=== PATIENT | female | born 1935 | race Caucasian/White ===

== ENCOUNTER 2018-03-27 18:37 | Inpatient (IN) ==
--- NOTE | 2018-03-28 02:15 | Internal Med History&Physical ---
<Veronica Yeboah - Last Filed: 03/28/18 06:34> Date of Encounter: 03/28/18 Time of Encounter: 02:00 Internal Medicine - H&P: HPI Chief complaint: falls Admitted From: Home Plans for Post Hospital Care: Home History of present illness: Ms. Douglas is a 82 year old female with a past medical history of COPD on 2 L , paroxysmal A. fib on digoxin and Xarelto with a pacemaker (MRI incompatible), hypertension, and newly diagnosed diabetes type 2 (yesterday) who is a transfer from [facility] for right lower lobe mass. Who presented to the ED for generalized weakness, frequent falls and abdominal pain that began on 03/23/18. Recent states that she had diffuse abdominal pain that did not worsen with eating and associated nausea. She admits to associated fever, increase congestion and urinary incontinence for the past week. Increased generalized weakness and pain in her lower extremities. Patient states that she has not had a bowel movement in 7 days. Patient was admitted to [address] [place] [address] and was found to have community acquired pneumonia and bacteremia with Klebsiella oxalate (treated with meropenem and ciprofloxacin starting on 03/26), elevated liver enzymes, and a right lower lobe mass. Upon admission to [facility], patient had a fever of 101.2, CRP 9.4, normal lactic acid, total bilirubin 2.3, AST 180, ALT 202, and an INR 2.9. UA was negative. CT of chest showed right lower lobe cavitary mass. Right ankle x- ray showed no acute fracture. 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 Ultrasound of gallbladder revealed cholelithiasis without evidence of acute cholecystitis, multiple hepatic cysts, echogenic lesion of the inferior pole of the right kidney consistent with angiomyolipoma Blood cultures showed Klebsiella oxytoca. A1c of 7.5 % and was diagonosed with diabetes. She continued to spike fevers and due to the concern for need for further evaluation for the cavitary mass, patient was transferred to [facility]. Culinary Instructor: Dr. Burton. Data Warehouse Manager: Dr. Best. ROS: Denies worsening shortness of breath, hemoptysis, syncope, melena, hematochezia, hematuria. Past Med Surg Social Fam HX - Past Medical History Source: patient, old records reviewed Medical history: COPD, diabetes, GERD, hyperlipidemia, hypertension Additional medical history: SOB, CASTANEDA, hernia Psychiatric history: anxiety - Past Surgical History Surgical History: appendectomy, hysterectomy Additional surgical history: BASAL CELL CARCINOMA REMOVED FROM NECK, CARPal tunnel release left wrist, loop recorder, PPM, eye surgery - Social History Smoking Status: Former smoker Smokeless Tobacco Status: No Alcohol use: none Drug use: none - Family History Mother Living Status: Hx Family Cardiac Disorders: Yes Father Living Status: Hx Family Cardiac Disorders: Yes (Aneurysm) Hx Family Neurologic Disorders: Yes Daughter Living Status: Still Living Hx Family Cardiac Disorders: Yes Internal Medicine - H&P: Meds Acetaminophen [Tylenol] 650 mg PO Q6HR PRN 07/04/15 [History] Albuterol Sulfate [Proventil Hfa] 2 puff Q4H PRN 07/04/15 [History] Docusate Sodium [Stool Softener] 100 mg PO DAILY 07/04/15 [History] Furosemide [Lasix] 40 mg PO DAILY 07/04/15 [History] Loratadine [Claritin] 10 mg PO DAILY 07/04/15 [History] Losartan [Cozaar] 50 mg PO DAILY 07/04/15 [History] Multivitamin [Flintstones] 1 each PO DAILY 07/04/15 [History] Nitroglycerin 0.4 mg SL Q5MIN PRN 07/04/15 [History] Omeprazole [PriLOSEC] 40 mg PO DAILY 07/04/15 [History] Potassium Chloride 20 meq PO TID 07/04/15 [History] Simvastatin [Zocor] 40 mg PO HS 07/04/15 [History] Tiotropium [Spiriva] 1 puff DAILY 07/04/15 [History] Fluticasone/Vilanterol [Breo Ellipta 100-25 Mcg INH] 1 each IH HS 01/01/16 [ History] Carvedilol [Coreg] 3.125 mg PO BIDWM #30 tablet 01/02/16 [Rx] Rivaroxaban [Xarelto] 20 mg PO HS 03/27/18 [History] 3 Allergy/AdvReac Type Severity Reaction Status Date / Time codeine Allergy Anxiety Verified 07/04/15 08:05 Penicillins [PCN] Allergy Itching Verified 07/04/15 08:04 All Systems PM: A 10-system review of systems was performed and is negative for pertinent findings except as documented above in the HPI. - Constitutional Vitals: Temp Pulse Resp BP Pulse Ox 100.5 F H 85 14 113/63 93 03/27/18 23:14 03/27/18 23:14 03/27/18 23:14 03/27/18 23:14 03/27/18 23:14 Exam: Constitutional: Alert, in no acute distress. A&O x3 Head: Normocephalic, atraumatic Heart: Normal, regular rate and rhythm, no murmurs Lungs: Clear to auscultation, no wheezes, rales, or rhonchi Abdomen: Soft, nondistended, nontender, no guarding or rigidity. Extremities: unable to do heel to hogue of right lower extremity to due to pain, parasthesia of lower extremities bilaterally all the way up to her thighs, + 2 pitting LE edema, radial pulse +2/4, capillary refill <2sec. Skin: Skin warm and dry, no lesions, no rashes, no jaundice Neurologic: Cranial nerves II through XII grossly intact, strength 4/5 in lower extremities, 5/5 in upper extremities Psych: Cooperative with exam, good eye contact, cognitive function intact, speech clear, thought process logical, and goal directed Internal Med - H&P Results - Labs CBC & Chem 7: 03/28/18 04:42 03/28/18 04:42 - Assessment and plan (1) Cavitating mass in right lower lung lobe Current Visit: Yes Status: Acute Assessment and plan: PMH of COPD chronically on 2L, former smoker. CT of chest shows a rounded opacity in the right infrahilar region corresponding to a centrally lucent mass in the medial right lower lobe, concerning for potential neoplasm. Left paratracheal mediastinal mass/adenopathy. Plan: - consult pulmonology for bronchoscopy with biopsy - Will need to consult oncology asfter pulmonology obtains biopsy - NPO for possible bronchoscopy tomorrow (2) Bacteremia due to Gram-negative bacteria Current Visit: Yes Status: Acute Assessment and plan: Bacteremia due to Klebsiella oxytoca, possibly GI source. No diarrhea. Sensitive to Meropenem and Ciprofloxacin and to all antibiotics tested except Ampicillin and Cefazolin. Patient continues to have fevers. Plan: - continue Meropenem and Ciprofloxacin (day 3) - CT chest, abd, and pelvis to access for possible abscess causing infection (3) CAP (community acquired pneumonia) Current Visit: Yes Status: Acute Assessment and plan: Increase nasal congestion, productive cough, fever, and generalized weakness. CXR shows opacification on the right. Already on antibiotics for bacteremia that should cover pneumonia. Qualifiers: Laterality: right Lung location: lower lobe of lung Qualified Code(s): J18.1 - Lobar pneumonia, unspecified organism (4) Urinary incontinence Current Visit: Yes Status: Acute Assessment and plan: Patient states that she has a history of stress incontinence but has had worsening incontinence for the past week that she has been unable to control. Concern for mets to the spinal cord or brain. Head CT showed no lesions, unable to do MRI due to pacemaker. Plan: - CT lumbar without contrast Qualifiers: Urinary Incontinence type: unspecified incontinence Qualified Code(s): R32 - Unspecified urinary incontinence (5) Constipation Current Visit: Yes Status: Acute Assessment and plan: Patient has been constipated for 7 days. Will begin with scheduled Miralax BID. Most likely 2/2 to opioids but could be 2/2 to mets to the spinal cord as patient is also having urinary incontinence and parasthesia. Patient has had chronic peripheral neuropathy so hard to distinguish if worsened but patient has had increase weakness and pain in her legs. Plan: - miralax 1 cap BID isaura - consult to neurology - measure I&Os Qualifiers: Constipation type: unspecified constipation type Qualified Code(s): K59.00 - Constipation, unspecified (6) Diabetes type 2, controlled Current Visit: Yes Status: Acute Assessment and plan: Newly diagnosed at [facility]. A1c= 7.5%. Most likely cause of her peripheral neuropathy. plan: - low sliding scale - accu checks TIDAC Qualifiers: Diabetes mellitus [facility] insulin use: without parts counterman use Diabetes mellitus complication status: with neurologic complications Diabetes mellitus complication detail: with polyneuropathy Qualified Code(s): E11.42 - Type 2 diabetes mellitus with diabetic polyneuropathy (7) Paroxysmal A-fib Current Visit: Yes Status: Chronic Assessment and plan: Chronic paroxysmal a-fib. No new concerns. Patient is rate controlled without chest pain. Continue Xarelto. Patient on Digoxin but unsure dose awaiting med reconciliation. (8) DVT prophylaxis Current Visit: Yes Status: Acute Assessment and plan: continue Xarelto (9) Nausea & vomiting Current Visit: Yes Status: Acute Assessment and plan: CT abdomen and pelvis. Zofran for symptoms relief. Qualifiers: Vomiting type: cyclical vomiting Vomiting Intractability: non-intractable Qualified Code(s): G43.A0 - Cyclical vomiting, not intractable - Time Spent With Patient Total time spent is greater than 50% in coordination of care (as documented) at patient's floor/unit and/or counseling patient: <Justin Galeas - Last Filed: 03/28/18 06:56> Date of Encounter: 03/28/18 Internal Medicine - H&P: HPI History of present illness: Ms. Douglas is a 82 year old female All Systems PM: A 10-system review of systems was performed and is negative for pertinent findings except as documented above in the HPI. - Constitutional Vitals: Temp Pulse Resp BP Pulse Ox 98.9 F 120 14 115/84 95 03/28/18 06:42 03/28/18 06:42 03/28/18 06:42 03/28/18 06:42 03/28/18 06:42 Internal Med - H&P Results - Labs CBC & Chem 7: 03/28/18 04:42 03/28/18 04:42 Labs: Short CBC 03/28/18 Range/Units 04:42 WBC 7.2 (4.3-11.1) K/mcL Hgb 10.3 L (11.5-15.4) g/dL Hct 33.1 L (35.3-44.9) % Plt Count 193 (140-400) K/mcL BMP 03/28/18 04:42 Sodium 141 Potassium 3.8 Chloride 102 Carbon Dioxide 30 H BUN 13 Creatinine 0.68 Glucose 173 H Calcium 8.8 Liver Function 03/28/18 Range/Units 04:42 Total Bilirubin 0.6 (0.3-1.0) mg/dL AST 29 (13-39) Units/L ALT 65 H (7-52) Units/L Alkaline Phosphatase 61 (34-104) Units/L Albumin 2.9 L (3.5-5.7) g/dL - Attending Attestation I have seen and examined this patient independently. I have discussed with resident physician Dr. Yeboah regarding the management plan. Agree with the documentation. Patient has A. fib on xarelto. Last dose was yesterday evening. Patient may need biopsy, will hold xarelto now. Patient complaint constipation, abdominal pain, and urinary incontinence. Will give lactulose by mouth, check CT abdominal and pelvis and L-spine. Patient has pacemaker, cannot have MRI. - Assessment and plan (1) Cavitating mass in right lower lung lobe Current Visit: Yes Status: Acute (2) CAP (community acquired pneumonia) Current Visit: Yes Status: Acute Qualifiers: Laterality: right Lung location: lower lobe of lung Qualified Code(s): J18.1 - Lobar pneumonia, unspecified organism (3) Bacteremia due to Gram-negative bacteria Current Visit: Yes Status: Acute (4) Constipation Current Visit: Yes Status: Acute Qualifiers: Constipation type: unspecified constipation type Qualified Code(s): K59.00 - Constipation, unspecified (5) Diabetes type 2, controlled Current Visit: Yes Status: Acute Qualifiers: Diabetes mellitus parts counterman insulin use: without parts counterman use Diabetes mellitus complication status: with neurologic complications Diabetes mellitus complication detail: with polyneuropathy Qualified Code(s): E11.42 - Type 2 diabetes mellitus with diabetic polyneuropathy (6) Paroxysmal A-fib Current Visit: Yes Status: Chronic (7) DVT prophylaxis Current Visit: Yes Status: Acute (8) Urinary incontinence Current Visit: Yes Status: Acute Qualifiers: Urinary Incontinence type: unspecified incontinence Qualified Code(s): R32 - Unspecified urinary incontinence (9) Nausea & vomiting Current Visit: Yes Status: Acute Qualifiers: Vomiting type: cyclical vomiting Vomiting Intractability: non-intractable Qualified Code(s): G43.A0 - Cyclical vomiting, not intractable - Time Spent With Patient Total time spent is greater than 50% in coordination of care (as documented) at patient's floor/unit and/or counseling patient:
[2018-03-28] MEDS ORDERED: Naloxone 0.4 MG/ML INJ IVP PRN (02:22)
[2018-03-28] MEDS ORDERED: *HR* Dextrose 50 % in Water (Syg) 50 ML SYRINGE IVP PRN (02:55)
[2018-03-28] MEDS ORDERED: Dextrose Gel 15 GM/37.5 ML TUBE PO PRN ×2 (02:55)
[2018-03-28] MEDS ORDERED: D5% in Water 1,000 ML IVC PRN (02:55)
[2018-03-28] MEDS ORDERED: Ipratropium/Albuterol Neb 3 ML IH PRN (02:57)
[2018-03-28] MEDS: Ipratropium/Albuterol Neb 3 ML IH SCH ×4 (04:29→22:37)
[2018-03-28 05:01] LABS: Hematocrit 33.1 % (35.3-44.9); Hemoglobin 10.3 g/dL (11.5-15.4); Mean Corpuscular HGB Conc 31.1 g/dL (31.6-35.5); Mean Corpuscular Hemoglobin 27.3 pg (28.0-33.3); Mean Corpuscular Volume 87.8 fL (83.0-100.0); Mean Platelet Volume 9.5 fL (9.4-12.4); Platelet Count 193 K/mcL (140-400); Red Blood Count 3.77 M/mcL (3.82-4.97); Red Cell Distribution Width 13.9 % (11.5-14.5)
[2018-03-28 05:19] LABS: Alanine Aminotransferase 65 Units/L (7-52); Albumin 2.9 g/dL (3.5-5.7); Albumin/Globulin Ratio 1.1 (1.1-2.2); Alkaline Phosphatase 61 Units/L (34-104); Aspartate Amino Transferase 29 Units/L (13-39); BUN/Creatinine Ratio 19 (6-26); Bilirubin,Total 0.6 mg/dL (0.3-1.0); Blood Urea Nitrogen 13 mg/dL (8-23); Calcium 8.8 mg/dL (8.6-10.3); Carbon Dioxide 30 mEq/L (23-29); Chloride 102 mEq/L (98-107); Globulin 2.7 g/dL (2.4-3.5); Glucose 173 mg/dL (70-105); Magnesium 1.8 mg/dL (1.6-2.6); Osmolality,Calculated 296 (280-300); Phosphorous 3.7 mg/dL (2.7-4.5); Potassium 3.8 mEq/L (3.5-5.1); Sodium 141 mEq/L (136-145); Total Protein 5.6 g/dL (6.4-8.9); eGFR For African Americans > 60 (> 60); eGFR For Non-African Americans > 60 (> 60)
[2018-03-28] MEDS: Insulin LISPRO 300 UNITS/3 ML VIAL SQ SCH ×4 (05:38→23:44)
[2018-03-28] MEDS: Acetaminophen 325 MG TABLET PO PRN (05:53)
--- NOTE | 2018-03-28 06:27 | Pulmonology Consult Note ---
Date of Encounter: 03/28/18 Time of Encounter: 06:27 Assessment and Plan (1) Cavitating mass in right lower lung lobe Current Visit: Yes Status: Acute I personally reviewed and interpreted the images and rather radiology reports from related to her CT scan that was performed at the outside hospital which is notable for medial right lower lobe mass with central cavitation. There is no significant adenopathy. Given age and smoking history this is concerning for primary lung neoplasia. I favor this over infectious process although an pneumonia is not entirely excluded. Given location I recommend tissue sampling with transthoracic biopsy done by interventional radiology. Results should be sent for histopathology and infectious culture. (2) Bacteremia due to Gram-negative bacteria Current Visit: Yes Status: Acute I doubt that the lung is the primary source of infection in this patient. Favor intra-abdominal source although urinalysis from outside hospital was not suggestive of urinary tract infection. Given bacteremia of unclear etiology recommend formal infectious disease consultation. (3) Paroxysmal A-fib Current Visit: Yes Status: Chronic Currently was is rate controlled although she did have one episode of atrial fibrillation with rapid ventricular response earlier in the day. Her long-term anticoagulation should be held until biopsy can be obtained (4) COPD (chronic obstructive pulmonary disease) Current Visit: Yes Status: Acute No evidence of acute exacerbation patient brought her home and hand held inhaler (Breo) which can be started here. Qualifiers: COPD type: unspecified COPD Qualified Code(s): J44.9 - Chronic obstructive pulmonary disease, unspecified (5) Chronic respiratory failure Current Visit: Yes Status: Acute Excellent saturation on home 2 L nasal cannula weaned to keep saturation greater than 88% at all times Qualifiers: Respiratory failure complication: hypoxia Qualified Code(s): J96.11 - Chronic respiratory failure with hypoxia History of Present Illness Consult date: 03/28/18 Requesting physician: Veronica Yeboah Reason for consult: pneumonia Chief complaint: Difficulty in Breathing History of present illness: Ms. Douglas is a very pleasant 82-year-old woman well known to me from outpatient clinic where I am her primary marine electrician apprentice. She suffers from COPD and has chronic respiratory failure on round 2 L nasal cannula. She presented to outside hospital [facility] last week for generalized weakness frequent falls and abdominal pain that began on 03/23/18 she was admitted to [facility] and found to have treated acquired pneumonia and bacteremia with Klebsiella and she was treated with antibiotics including meropenem and ciprofloxacin. She is also noted to have a right lower lobe lung mass was Cavitary features for which she was transferred to [facility] for pulmonary evaluation. She has noticed intermittent episodes of increased wheezing and shortness of breath she is also been coughing more than usual per the daughter. She also is endorsing constipation. She is receiving NOAC for LTA for Afib. The patient is a former smoker now in remission in addition her medical history is notable for paroxysmal atrial fibrillation infectious been noted to be in A. fib with RVR during this admission. Past Med Surg Social Fam HX - Past Medical History Medical history: COPD, diabetes, GERD, hyperlipidemia, hypertension Additional medical history: SOB, CASTANEDA, hernia Psychiatric history: anxiety - Past Surgical History Surgical History: appendectomy, hysterectomy Additional surgical history: BASAL CELL CARCINOMA REMOVED FROM NECK, CARPal tunnel release left wrist, loop recorder, PPM, eye surgery - Social History Smoking Status: Former smoker Smokeless Tobacco Status: No Alcohol use: none Drug use: none - Family History Mother Living Status: Hx Family Cardiac Disorders: Yes Father Living Status: Hx Family Cardiac Disorders: Yes (Aneurysm) Hx Family Neurologic Disorders: Yes Daughter Living Status: Still Living Hx Family Cardiac Disorders: Yes Medications and Allergies Acetaminophen [Tylenol] 650 mg PO Q6HR PRN 07/04/15 [History] Albuterol Sulfate [Proventil Hfa] 2 puff Q4H PRN 07/04/15 [History] Multivitamin [Flintstones] 1 each PO DAILY 07/04/15 [History] Fluticasone/Vilanterol [Breo Ellipta 100-25 Mcg INH] 1 each IH HS 01/01/16 [ History] Rivaroxaban [Xarelto] 20 mg PO HS 03/27/18 [History] Digoxin [Lanoxin] 0.25 mg PO Q48H 03/28/18 [History] Furosemide [Lasix] 40 mg PO BID 03/28/18 [History] Loratadine [Allergy Relief] 10 mg PO DAILY 03/28/18 [History] Losartan Potassium [Cozaar] 50 mg PO DAILY 03/28/18 [History] Metoprolol Tartrate [Lopressor] 50 mg PO BID 03/28/18 [History] Omeprazole [PriLOSEC] 40 mg PO DAILY 03/28/18 [History] Potassium Chloride [K-Tab ER] 20 meq PO TID 03/28/18 [History] Simvastatin [Zocor] 40 mg PO HS 03/28/18 [History] Tiotropium [Spiriva] 1 aerosol IH DAILY 03/28/18 [History] 3 Allergy/AdvReac Type Severity Reaction Status Date / Time codeine Allergy Anxiety Verified 07/04/15 08:05 Penicillins [PCN] Allergy Itching Verified 07/04/15 08:04 All Systems: The remainder of the systems were reviewed and are negative Physical Examination Vital Signs: Vital Signs, Last 4 Hours Temp Pulse Resp BP Pulse Ox 03/28/18 05:00 99.1 F 109 15 130/83 94 General appearance: no acute distress Eyes: nonicteric ENT: oropharynx moist Mallampati (class): 3 Neck: supple Effort: normal Auscultation: bilateral: clear Cardiovascular: irregular rhythm Gastrointestinal: normoactive bowel sounds, soft, other (Mild tenderness to deep palpation without rebound tenderness) Integumentary: normal Extremities: no cyanosis, no clubbing, other (Trace lower extremity edema) Musculoskeletal: no deformities normal mental status, non-focal exam mood appropriate Results - Laboratory Findings CBC and BMP: 03/28/18 04:42 03/28/18 04:42 Abnormal lab findings: Abnormal lab results RBC 3.77 M/mcL (3.82-4.97) L 03/28/18 04:42 Hgb 10.3 g/dL (11.5-15.4) L 03/28/18 04:42 Hct 33.1 % (35.3-44.9) L 03/28/18 04:42 MCH 27.3 pg (28.0-33.3) L 03/28/18 04:42 MCHC 31.1 g/dL (31.6-35.5) L 03/28/18 04:42 Carbon Dioxide 30 mEq/L (23-29) H 03/28/18 04:42 Glucose 173 mg/dL (70-105) H 03/28/18 04:42 POC Glucose 167 mg/dL (70-99) H 03/28/18 05:05 ALT 65 Units/L (7-52) H 03/28/18 04:42 Serum Total Protein 5.6 g/dL (6.4-8.9) L 03/28/18 04:42 Albumin 2.9 g/dL (3.5-5.7) L 03/28/18 04:42 - Diagnostic Findings Chest x-ray: report reviewed, image reviewed CT scan - chest: report reviewed, image reviewed - Clinical Findings Intake & Output: Intake & Output 03/27/18 03/27/18 03/28/18 15:59 23:59 07:59 Weight 99.2 kg Consult Discharge Plan - Plan Referrals: Kelly Montes De Oca, CLERICAL INVESTIGATOR [Primary Care Provider] -
--- NOTE | 2018-03-28 06:59 | Event Note ---
Date of Encounter: 03/28/18 Time of Encounter: 06:00 Report by RN that the patient developed A. fib RVR with heart rate 140. BP is 115/84. Will start Cardizem drip.
[2018-03-28] MEDS ORDERED: Insulin LISPRO 300 UNITS/3 ML VIAL SQ SCH (07:30)
[2018-03-28] MEDS ORDERED: Meropenem 1,000 MG in Water for inj. (sterile) 20 ML 10 ML IVP SCH (08:00)
--- NOTE | 2018-03-28 13:29 | Infectious Disease Consult ---
Date of Encounter: 03/28/18 Time of Encounter: 13:28 Assessment and Plan (1) Bacteremia due to Gram-negative bacteria Status: Acute Assessment and plan: Causative organism: K. oxytoca. Source unclear, but likely intra-abdominal. Gallbladder UTS showed gallstones without cholecystitis, hepatic cysts, and angiomyolipoma of the right kidney. LFTs initially elevated, improved. Repeat blood cultures x [address] of the abdomen and pelvis ordered by the primary team. Discontinue precautions. The bacteria is not ESBL. Discontinue Alden and Cipro. Start Rocephin 2 grams IV daily. The patient does have documented allergy to PCN , but it was a nonspecific itching rash and was a very long time ago. Duration of treatment depends on the clinical picture. (2) Cavitating mass in right lower lung lobe Status: Acute Assessment and plan: Etiology unclear: neoplasm vs. infections vs. other. Pulmonology consulted and following. Planning for transthoracic biopsy per IR. Please send specimen for culture (aerobic, anaerobic, AFB, and fungal). Continue antibiotics as above. (3) Constipation Status: Acute Assessment and plan: Patient reports no BM for seven day. Bowel regimen per the primary team. Qualifiers: Constipation type: unspecified constipation type Qualified Code(s): K59.00 - Constipation, unspecified (4) Diabetes type 2, controlled Status: Acute Assessment and plan: Hgb A1C 7.2%. Recommend aggressive glucose monitoring and control to promote wound healing and prevent re-infection. Management per the primary team. Qualifiers: Diabetes mellitus group home insulin use: without group home use Diabetes mellitus complication status: with neurologic complications Diabetes mellitus complication detail: with polyneuropathy Qualified Code(s): E11.42 - Type 2 diabetes mellitus with diabetic polyneuropathy (5) Paroxysmal A-fib Status: Chronic Assessment and plan: Currently RVR. Management per the primary team. (6) COPD (chronic obstructive pulmonary disease) Status: Acute Qualifiers: COPD type: unspecified COPD Qualified Code(s): J44.9 - Chronic obstructive pulmonary disease, unspecified (7) Elevated LFTs Status: Acute Assessment and plan: Etiology unclear. Gallbladder UTS showed gallstones, but no cholecystitis. Resolved. Continue to trend. (8) Gallstones Status: Acute Infectious Disease HPI - Data of Consult Patient: new to practice Consult date: 03/28/18 Requesting Physician: Cate Sanders Primary Care Provider: Kelly Montes De Oca CNP - Consult Narrative Reason for consult: Klebsiella bacteremia History of present illness: Ms. Douglas is a 82 year old female with a past medical history of COPD, paroxysmal A. fib, hypertension, type 2 diabetes, hyperlipidemia, and pacemaker. The patient was admitted to the hospital March 27 for Klebsiella bacteremia. We are consulted March 28 for further recommendations for Klebsiella bacteremia. Sleep, the patient is an 82-year-old female with past medical history as stated above. The patient presented to the emergency department at an [facility] last with complaints of weakness, generalized abdominal pain, and overall not feeling well. She had a chest x-ray that showed a right lower lobe mass concerning for neoplasm and her CT abdomen and pelvis showed gallstones. She was discharged home with instructions to follow-up with pulmonology and her primary care provider, but her symptoms persisted and worsened so she went back to the emergency department on Tuesday. Once she got to the hospital, she was admitted. She had a normal white blood cell count but was noted to have a mildly elevated total bilirubin and mildly elevated LFTs. Urinalysis was negative. Blood cultures were obtained 4 sets. The patient began to spike fevers. She was initially started on vancomycin Levaquin and admitted for further evaluation. After admission, the patient continued to have fevers. Her LFTs improved. Repeat urinalysis was positive for trace bacteria, but did appear contaminated. Her blood cultures came back +3 out of 4 sets for Klebsiella oxytoca. Her antibiotics were transitioned to IV Cipro and IV meropenem. She had a gallbladder ultrasound on March 27 that showed cholelithiasis without cholecystitis, multiple hepatic cysts, an echogenic lesion of the pole of the right kidney consistent with an angiomyolipoma. Due to her persistent fevers and the lung mass and bacteremia, she was transferred here for further evaluation. Since admission, the patient has been intermittently tachycardic. She is currently on a Cardizem drip. She also had a low-grade fever with a MAXIMUM TEMPERATURE of 100.5. Repeat labs this morning reveal a normal white blood cell count. AST is 29, ALP of 65, alkaline phosphatase 61 and total bilirubin is down to 0.6. Repeat blood cultures have been obtained 2 sets are currently pending. She is CT the abdomen, pelvis, and lumbar spine are pending completion as well. Pulmonology was consulted and has recommended a transthoracic biopsy of the right lower lobe lung mass. She is currently on IV Cipro and IV meropenem. We have been asked to evaluate and make further recommendations. During my exam today, the patient endorses a history as stated above. Overall, she states she does not feel much better than when she originally came to the hospital. She does endorse some fevers and chills and rigors and some neck pain. She denies any headache or dizziness. She does report feeling generally weak and states that she has been falling a lot recently. She reports right ear pain, but denies any congestion, earache, or sore throat. She denies any chest pain, but states that she can feel that her heart is beating very fast. She does report chronic cough that is at baseline as well as shortness of breath secondary to her COPD. She denies abdominal pain at this time, but reports that when she was having it was pretty generalized to the entire abdomen and was dull and aching in nature, but was very severe to the point where she wanted to go to the ER for evaluation. She denies diarrhea and states she hasn't had a bowel movement in about 7 days. She denies vomiting, but does state she was gagging a lot. She also reported some urinary hesitancy, and dysuria. She states her appetite been okay. She reports lower back pain and weakness in her bilateral lower extremities. She denies any oral thrush or new skin lesions. The patient lives at home with her . 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 She denies any tobacco, alcohol, or illicit drug use. She denies any animal or pet exposures. No known mosquito or tick bites. CC: Cate Sanders Past Med Surg Social Fam HX - Past Medical History Attestation: Yes The following information was validated with the patient. Source: patient, old records reviewed, nursing notes reviewed Medical history: COPD, diabetes, GERD, hyperlipidemia, hypertension Additional medical history: SOB, CASTANEDA, hernia Psychiatric history: anxiety - Past Surgical History Surgical History: appendectomy, hysterectomy Additional surgical history: BASAL CELL CARCINOMA REMOVED FROM NECK, CARPal tunnel release left wrist, loop recorder, PPM, eye surgery - Social History Smoking Status: Former smoker Smokeless Tobacco Status: No Alcohol use: none Drug use: none Occupational status: retired Current living situation: Home, With Family Activity Level: Uses cane/walker Recent Out of Country Travel Within the Last 8 Weeks: No Exposure or Possible Exposure to Illness During Travel: No - Family History Mother Living Status: Hx Family Cardiac Disorders: Yes Father Living Status: Hx Family Cardiac Disorders: Yes (Aneurysm) Hx Family Neurologic Disorders: Yes Daughter Living Status: Still Living Hx Family Cardiac Disorders: Yes Infectious Disease-CN:Meds Acetaminophen [Tylenol] 650 mg PO Q6HR PRN 07/04/15 [History] Albuterol Sulfate [Proventil Hfa] 2 puff Q4H PRN 07/04/15 [History] Multivitamin [Flintstones] 1 each PO DAILY 07/04/15 [History] Fluticasone/Vilanterol [Breo Ellipta 100-25 Mcg INH] 1 each IH HS 01/01/16 [ History] Rivaroxaban [Xarelto] 20 mg PO HS 03/27/18 [History] Digoxin [Lanoxin] 0.25 mg PO Q48H 03/28/18 [History] Furosemide [Lasix] 40 mg PO BID 03/28/18 [History] Loratadine [Allergy Relief] 10 mg PO DAILY 03/28/18 [History] Losartan Potassium [Cozaar] 50 mg PO DAILY 03/28/18 [History] Metoprolol Tartrate [Lopressor] 50 mg PO BID 03/28/18 [History] Omeprazole [PriLOSEC] 40 mg PO DAILY 03/28/18 [History] Potassium Chloride [K-Tab ER] 20 meq PO TID 03/28/18 [History] Simvastatin [Zocor] 40 mg PO HS 03/28/18 [History] Tiotropium [Spiriva] 1 aerosol IH DAILY 03/28/18 [History] 3 Allergy/AdvReac Type Severity Reaction Status Date / Time codeine Allergy Anxiety Verified 07/04/15 08:05 Penicillins [PCN] Allergy Itching Verified 07/04/15 08:04 All systems: reviewed and no additional remarkable complaints except as stated Exam - Constitutional Vitals: Temp Pulse Resp BP Pulse Ox 99.2 F 77 14 120/73 93 03/28/18 12:33 03/28/18 12:33 03/28/18 12:33 03/28/18 12:33 03/28/18 12:33 General appearance: average body habitus, cooperative, no acute distress - Head Head exam: Present: atraumatic, normal inspection, normocephalic - Eye Eye exam: Present: EOMI, normal appearance, PERRL Pupils: Present: normal accommodation - ENT ENT exam: Present: mucous membranes moist - Neck Neck exam: Present: normal inspection. Absent: meningismus - Respiratory Respiratory exam: Present: decreased breath sounds (Bilateral bases), CTAB, wheezes (Fine expiratory wheezes in the bilateral upper lobes.). Absent: rales , respiratory distress - Cardiovascular Cardiovascular exam: Present: irregular rhythm, tachycardia - GI/Abdominal GI/Abdominal exam: Present: soft, tenderness (generalized) - Extremities Exam Extremities exam: Present: tenderness (BLE). Absent: joint swelling, pedal edema - Back Exam Back exam: Present: normal inspection, paraspinal tenderness (Generalized lower back). Absent: CVA tenderness (L), CVA tenderness (R), vertebral tenderness - Neurological Exam Neurological exam: Present: alert, oriented X3, no focal deficits - Psychiatric Psychiatric exam: Present: normal affect, normal mood - Skin Skin exam: Present: dry, intact, normal color, warm Infectious Disease CN: Results - Labs CBC & Chem 7: 03/29/18 00:49 03/29/18 00:49 Cultures: Cultures 03/28/18 04:42 Blood Culture - Preliminary Peripheral Venipuncture Culture is incubating and being continuously monitored for growth. Final report to follow. Consult Discharge Plan - Plan Referrals: Kelly Montes De Oca CNP [Primary Care Provider] - - Attending Attestation I examined this patient and my medical decision-making was reviewed with the Resident Physician. I agree with the documented findings, disposition and treatment plan as described except to the extent set forth below. This is an addendum to original report dictated by Sabine Hassan CNP. Please refer to Shanta franklin for full details. Patient is an 82-year-old woman with past medical history mentioned below who is high risk because she has a pacemaker and a bioprosthetic valve and knee arthroplasty. Was feeling weak and tired and having no specific complaints. Patient was evaluated at the [facility] and was noted to have a cavitary lung lesion in the right lower lung concerning for malignancy that is being followed by pulmonary service. Blood cultures were obtained on the patient and they were positive for klebsiella oxytoca that was initially thought to be ESBL but susceptibilities were back and reviewed and it is negative for ESBL. Patient also states that she is allergic to penicillin had the rash about 30 years ago. We were asked to evaluate the patients make further recommendations. She had a chest x-ray that showed a right lower lobe mass concerning for neoplasm and her CT abdomen and pelvis showed gallstones. On further questioning patient states that she feels slightly better and the abdominal pain is significantly improved but not fully gone. Daughter is at bedside. Assessment and plan: Bacteremia with gram-negative rods; klebsiella oxytoca. Source not clear intra- abdominal versus pulmonary. Susceptibilities reviewed and acute switch the patient to Rocephin. Cavitary mass and right lower lung lobe. Etiology not clear high risk for malignancy per pulmonary team. We will not work her up for fungal or AFB infections. No pain with elevated LFTs. Cholelithiasis versus cholecystitis versus other. Consider adding Flagyl.
[2018-03-28] MEDS: cefTRIAXone 2,000 MG in 0.9 % Sodium Chloride Mini Bag 100 ML IVPB SCH (15:58)
--- NOTE | 2018-03-28 18:44 | Electrocardiograph Report ---
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
--- NOTE | 2018-03-28 18:44 | Electrocardiograph Report ---
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
[2018-03-28] MEDS ORDERED: *HR* Rivaroxaban 10 MG TABLET PO SCH (21:00)
[2018-03-29 01:01] LABS: Basophils % 0.3 %; Eosinophils # 0.1 K/mcL (0.0-0.6); Eosinophils % 1.4 %; Hematocrit 33.8 % (35.3-44.9); Hemoglobin 10.5 g/dL (11.5-15.4); Immature Granulocytes % 0.3 % (0-4); Lymphocytes # 1.3 K/mcL (0.6-4.6); Lymphocytes % 18.1 %; Mean Corpuscular HGB Conc 31.1 g/dL (31.6-35.5); Mean Corpuscular Hemoglobin 27.3 pg (28.0-33.3); Mean Platelet Volume 9.7 fL (9.4-12.4); Monocytes # 0.6 K/mcL (0.0-1.3); Monocytes % 8.4 %; Neutrophils # 5.2 K/mcL (1.6-8.9); Platelet Count 208 K/mcL (140-400); Red Blood Count 3.84 M/mcL (3.82-4.97); Red Cell Distribution Width 13.8 % (11.5-14.5); Segmented Neutrophils % 71.5 %
[2018-03-29 01:23] LABS: BUN/Creatinine Ratio 17 (6-26); Blood Urea Nitrogen 12 mg/dL (8-23); Calcium 8.5 mg/dL (8.6-10.3); Carbon Dioxide 32 mEq/L (23-29); Chloride 102 mEq/L (98-107); Glucose 164 mg/dL (70-105); Osmolality,Calculated 295 (280-300); Potassium 3.5 mEq/L (3.5-5.1); Sodium 141 mEq/L (136-145); eGFR For African Americans > 60 (> 60); eGFR For Non-African Americans > 60 (> 60)
[2018-03-29 01:37] LABS: Magnesium 1.9 mg/dL (1.6-2.6)
[2018-03-29] MEDS ORDERED: Potassium Chloride 40 MEQ, Lidocaine 1% 2 ML in D5% in Water 500 ML IVPB ONE (01:53)
[2018-03-29] MEDS: Ipratropium/Albuterol Neb 3 ML IH SCH ×3 (04:06→16:04)
[2018-03-29] MEDS: Insulin LISPRO 300 UNITS/3 ML VIAL SQ SCH ×3 (05:59→18:17)
--- NOTE | 2018-03-29 06:33 | Pulmonology Progress Note ---
Date of Encounter: 03/29/18 Time of Encounter: 06:33 Assessment and Plan (1) Cavitating mass in right lower lung lobe Current Visit: Yes Status: Acute Neoplastic vs Infectious IR deferred TTNA because of concern over how to position patient safely Outpatient PET/CT ordered May need Navigational Bronch with biopsy F/u Pulmonary within 1 week. (2) Bacteremia due to Gram-negative bacteria Current Visit: Yes Status: Acute Unclear Source. ID following (3) COPD (chronic obstructive pulmonary disease) Current Visit: Yes Status: Acute cont home bronchodilators Qualifiers: COPD type: unspecified COPD Qualified Code(s): J44.9 - Chronic obstructive pulmonary disease, unspecified (4) Chronic respiratory failure Current Visit: Yes Status: Acute stable baseline O2 requirements at night and with exertion. Qualifiers: Respiratory failure complication: hypoxia Qualified Code(s): J96.11 - Chronic respiratory failure with hypoxia Subjective Principal diagnosis: Bacteremia Interval history: No acute events overnight. No current supplemental O2 requirement. Denies any new complaints. Joined by Daughter and sisters at bedside. Objective PUL Vital signs: Last Vital Signs Temp 98.9 F 03/29/18 06:27 Pulse 84 03/29/18 06:27 Resp 15 03/29/18 06:27 BP 124/66 03/29/18 06:27 Pulse Ox 96 03/29/18 06:27 General appearance: no acute distress Eyes: nonicteric ENT: oropharynx moist Auscultation: bilateral: diminished breath sounds (in lung bases ) Cardiovascular: regular rate and rhythm Gastrointestinal: normoactive bowel sounds Integumentary: normal Extremities: edema (trace b/l edema ) Musculoskeletal: no deformities normal mental status, non-focal exam Results - Laboratory Findings CBC and BMP: 03/29/18 00:49 03/29/18 00:49 Abnormal lab findings: Abnormal lab results Hgb 10.5 g/dL (11.5-15.4) L 03/29/18 00:49 Hct 33.8 % (35.3-44.9) L 03/29/18 00:49 MCH 27.3 pg (28.0-33.3) L 03/29/18 00:49 MCHC 31.1 g/dL (31.6-35.5) L 03/29/18 00:49 Carbon Dioxide 32 mEq/L (23-29) H 03/29/18 00:49 Glucose 164 mg/dL (70-105) H 03/29/18 00:49 POC Glucose 176 mg/dL (70-99) H 03/29/18 05:58 Calcium 8.5 mg/dL (8.6-10.3) L 03/29/18 00:49 ALT 65 Units/L (7-52) H 03/28/18 04:42 Serum Total Protein 5.6 g/dL (6.4-8.9) L 03/28/18 04:42 Albumin 2.9 g/dL (3.5-5.7) L 03/28/18 04:42 Digoxin 0.5 ng/mL (0.8-2.0) L 03/29/18 00:49 - Microbiology Findings Microbiology Findings: Microbiology, Last 48 Hours 03/28/18 16:30 Blood Culture - Preliminary Peripheral Venipuncture Culture is incubating and being continuously monitored for growth. Final report to follow. 03/28/18 16:30 Blood Culture - Preliminary Peripheral Venipuncture Culture is incubating and being continuously monitored for growth. Final report to follow. 03/28/18 04:42 Blood Culture - Preliminary Peripheral Venipuncture Culture is incubating and being continuously monitored for growth. Final report to follow. - Clinical Findings Intake & Output: Intake & Output 03/28/18 03/28/18 03/29/18 15:59 23:59 07:59 Intake Total 250 / 250 0 / 0 0 / 0 Output Total 100 / 100 0 / 0 0 / 0 Balance 150 / 150 0 / 0 0 / 0 Consult Discharge Plan - Plan Referrals: Kelly Montes De Oca, CAUSE ANALYST [Primary Care Provider] -
[2018-03-29] MEDS: *HR* Digoxin 0.125 MG TABLET PO SCH (08:32)
[2018-03-29] MEDS: cefTRIAXone 2,000 MG in 0.9 % Sodium Chloride Mini Bag 100 ML IVPB SCH (08:34)
--- NOTE | 2018-03-29 09:28 | IR Consult Note ---
Date of Encounter: 03/29/18 Time of Encounter: 09:00 Consult date: 03/29/18 Physicians: Cate Sanders Consult Comment: Thank you for the consult. Call [facility]IR with questions or concerns. Patient is a pleasant 82 year old patient who was referred for a biopsy by IR. She has a lesion in the right lower lobe which does not look like a typical lung cancer although it could be. This morning she is short of breath on O2 via nasal cannula. She does not have a recent coagulation panel. For this procedure to occur the patient would need to lie prone and get moderate sedation. At the current time it is unsafe to do that. She is a poor sedation candidate and cannot lie prone. Due to COPD she is at great risk for pneumothorax which she may not tolerate. I suggest performing bronchoscopic biopsy if safe. Transthoracic biopsy is not safe at this time. Past Med Surg Social Fam HX - Past Medical History Medical history: COPD, diabetes, GERD, hyperlipidemia, hypertension Additional medical history: SOB, CASTANEDA, hernia Psychiatric history: anxiety - Past Surgical History Surgical History: appendectomy, hysterectomy Additional surgical history: BASAL CELL CARCINOMA REMOVED FROM NECK, CARPal tunnel release left wrist, loop recorder, PPM, eye surgery - Social History Smoking Status: Former smoker Smokeless Tobacco Status: No Alcohol use: none Drug use: none - Family History Mother Living Status: Hx Family Cardiac Disorders: Yes Father Living Status: Hx Family Cardiac Disorders: Yes (Aneurysm) Hx Family Neurologic Disorders: Yes Daughter Living Status: Still Living Hx Family Cardiac Disorders: Yes Medications and Allergies Acetaminophen [Tylenol] 650 mg PO Q6HR PRN 07/04/15 [History] Albuterol Sulfate [Proventil Hfa] 2 puff Q4H PRN 07/04/15 [History] Multivitamin [Flintstones] 1 each PO DAILY 07/04/15 [History] Fluticasone/Vilanterol [Breo Ellipta 100-25 Mcg INH] 1 each IH HS 01/01/16 [ History] Rivaroxaban [Xarelto] 20 mg PO HS 03/27/18 [History] Digoxin [Lanoxin] 0.25 mg PO Q48H 03/28/18 [History] Furosemide [Lasix] 40 mg PO BID 03/28/18 [History] Loratadine [Allergy Relief] 10 mg PO DAILY 03/28/18 [History] Losartan Potassium [Cozaar] 50 mg PO DAILY 03/28/18 [History] Metoprolol Tartrate [Lopressor] 50 mg PO BID 03/28/18 [History] Omeprazole [PriLOSEC] 40 mg PO DAILY 03/28/18 [History] Potassium Chloride [K-Tab ER] 20 meq PO TID 03/28/18 [History] Simvastatin [Zocor] 40 mg PO HS 03/28/18 [History] Tiotropium [Spiriva] 1 aerosol IH DAILY 03/28/18 [History] 3 Allergy/AdvReac Type Severity Reaction Status Date / Time codeine Allergy Anxiety Verified 07/04/15 08:05 Penicillins [PCN] Allergy Itching Verified 07/04/15 08:04 Exam Vital Signs, Last 4 Hours Temp Pulse Resp BP Pulse Ox 03/29/18 06:27 98.9 F 84 15 124/66 96 Results Reviewed 03/29/18 00:49 03/29/18 00:49 Lab Results 03/29/18 03/29/18 03/28/18 00:49 00:49 04:42 WBC 7.3 RBC 3.84 Hgb 10.5 L Hct 33.8 L MCV 88.0 MCH 27.3 L MCHC 31.1 L RDW 13.8 Plt Count 208 MPV 9.7 Neutrophils # 5.2 Lymphocytes # 1.3 Monocytes # 0.6 Eosinophils # 0.1 Basophils # 0.0 Sodium 141 141 Potassium 3.5 3.8 Chloride 102 102 Carbon Dioxide 32 H 30 H BUN 12 13 Creatinine 0.72 0.68 Est GFR ( Amer) > 60 > 60 Est GFR (Non-Af Amer) > 60 > 60 BUN/Creatinine Ratio 17 19 Glucose 164 H 173 H Calcium 8.5 L 8.8 Phosphorus 3.7 Magnesium 1.9 1.8 03/28/18 04:42 WBC 7.2 RBC 3.77 L Hgb 10.3 L Hct 33.1 L MCV 87.8 MCH 27.3 L MCHC 31.1 L RDW 13.9 Plt Count 193 MPV 9.5 Neutrophils # Lymphocytes # Monocytes # Eosinophils # Basophils # Sodium Potassium Chloride Carbon Dioxide BUN Creatinine Est GFR ( Amer) Est GFR (Non-Af Amer) BUN/Creatinine Ratio Glucose Calcium Phosphorus Magnesium Consult Discharge Plan - Plan Referrals: Kelly Montes De Oca, SURVEY STATISTICIAN [Primary Care Provider] -
[2018-03-29 10:36] LABS: INR 1.2; Prothrombin Time 12.9 Seconds (9.4-12.1)
--- NOTE | 2018-03-29 11:15 | Infectious Disease Progress No ---
Date of Encounter: 03/29/18 Time of Encounter: 11:12 - Assessment and Plan (1) Bacteremia due to Gram-negative bacteria Current Visit: Yes Status: Acute Causative organism: K. oxytoca. Source unclear, but likely intra-abdominal. Blood cultures drawn 03/25/18 at [facility] are positive 3/4 sets. Repeat blood cultures drawn 03/28/18 are pending x 2 sets. Gallbladder UTS showed gallstones without cholecystitis, hepatic cysts, and angiomyolipoma of the right kidney. LFTs initially elevated, improved. CT of the abdomen and pelvis shows RLL lung mass, left hepatic lobe cyst, and a nonspecific area of increased attenuation within the head of the pancreas. CT of the L-spine showed degenerative changes with disc bulging at multiple levels. Continue Rocephin 2 grams IV daily. The patient does have documented allergy to PCN, but it was a nonspecific itching rash and was a very long time ago. She appears to be tolerating Rocephin without a problem. Duration of treatment depends on the clinical picture. (2) Cavitating mass in right lower lung lobe Current Visit: Yes Status: Acute Etiology unclear: neoplasm vs. infections vs. other. Pulmonology consulted and following. Planning for transthoracic biopsy per IR--> IR declined procedure and recommended transbronchial biopsy. Please send specimen for culture (aerobic, anaerobic, AFB, and fungal). Continue antibiotics as above. (3) Constipation Current Visit: Yes Status: Acute Patient reports small BM yesterday. Bowel regimen per the primary team. Qualifiers: Constipation type: unspecified constipation type Qualified Code(s): K59.00 - Constipation, unspecified (4) Diabetes type 2, controlled Current Visit: Yes Status: Acute Hgb A1C 7.2%. Recommend aggressive glucose monitoring and control to promote wound healing and prevent re-infection. Management per the primary team. 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 Management per the primary team. (6) COPD (chronic obstructive pulmonary disease) Current Visit: Yes Status: Acute Qualifiers: COPD type: unspecified COPD Qualified Code(s): J44.9 - Chronic obstructive pulmonary disease, unspecified (7) Elevated LFTs Current Visit: Yes Status: Acute Etiology unclear. Gallbladder UTS showed gallstones, but no cholecystitis. Resolved. Continue to trend. (8) Gallstones Current Visit: Yes Status: Acute Noted on previous gallbladder UTS. - Subjective Interval history: Patient seen and examined with family at the bedside. No acute events noted overnight. States overall feels okay, but not better. Denies fevers, chills, or rigors. Denies chest pain, reports chronic cough and shortness of breath at baseline. Denies nausea, vomiting, or diarrhea. States small BM yesterday. Reports genital pain/burning. Reports increased genital pain with urination. States she is not hungry, but would like something to drink. Denies oral thrush or new skin lesions. Complains of lower back pain. Infect Dis PN-Objective Data - Labs CBC & Chem 7: 03/29/18 00:49 03/29/18 00:49 Labs: Laboratory Results - last 24 hr 03/28/18 03/28/18 03/28/18 12:29 19:21 23:40 WBC RBC Hgb Hct MCV MCH MCHC RDW Plt Count MPV Immature Gran % Seg Neutrophils % Lymphocytes % Monocytes % Eosinophils % Basophils % Neutrophils # Lymphocytes # Monocytes # Eosinophils # Basophils # PT INR Sodium Potassium Chloride Carbon Dioxide BUN Creatinine Est GFR ( Amer) Est GFR (Non-Af Amer) BUN/Creatinine Ratio Glucose POC Glucose 127 H 218 H 160 H Calculated Osmolality Calcium Magnesium Digoxin 03/29/18 03/29/18 03/29/18 00:49 00:49 00:49 WBC 7.3 RBC 3.84 Hgb 10.5 L Hct 33.8 L MCV 88.0 MCH 27.3 L MCHC 31.1 L RDW 13.8 Plt Count 208 MPV 9.7 Immature Gran % 0.3 Seg Neutrophils % 71.5 Lymphocytes % 18.1 Monocytes % 8.4 Eosinophils % 1.4 Basophils % 0.3 Neutrophils # 5.2 Lymphocytes # 1.3 Monocytes # 0.6 Eosinophils # 0.1 Basophils # 0.0 PT INR Sodium 141 Potassium 3.5 Chloride 102 Carbon Dioxide 32 H BUN 12 Creatinine 0.72 Est GFR ( Amer) > 60 Est GFR (Non-Af Amer) > 60 BUN/Creatinine Ratio 17 Glucose 164 H POC Glucose Calculated Osmolality 295 Calcium 8.5 L Magnesium 1.9 Digoxin 0.5 L 03/29/18 03/29/18 05:58 10:00 WBC RBC Hgb Hct MCV MCH MCHC RDW Plt Count MPV Immature Gran % Seg Neutrophils % Lymphocytes % Monocytes % Eosinophils % Basophils % Neutrophils # Lymphocytes # Monocytes # Eosinophils # Basophils # PT 12.9 H INR 1.2 Sodium Potassium Chloride Carbon Dioxide BUN Creatinine Est GFR ( Amer) Est GFR (Non-Af Amer) BUN/Creatinine Ratio Glucose POC Glucose 176 H Calculated Osmolality Calcium Magnesium Digoxin Cultures: Cultures 03/28/18 16:30 Blood Culture - Preliminary Peripheral Venipuncture Culture is incubating and being continuously monitored for growth. Final report to follow. 03/28/18 16:30 Blood Culture - Preliminary Peripheral Venipuncture Culture is incubating and being continuously monitored for growth. Final report to follow. 03/28/18 16:30 Blood Culture - Preliminary Peripheral Venipuncture Culture is incubating and being continuously monitored for growth. Final report to follow. 03/28/18 04:42 Blood Culture - Preliminary Peripheral Venipuncture Culture is incubating and being continuously monitored for growth. Final report to follow. - Impressions Impressions Abdomen/Pelvis CT 03/28/18 16:00 IMPRESSION: 1. A 32 mm concerning appearing mass in the posterior basal right lower lobe. 2. A 3.6 cm left hepatic lobe cyst. Other low-density lesions are difficult to characterize on unenhanced evaluation. 3. Cholelithiasis. 4. Nonspecific area of increased attenuation within the head of the pancreas may be further evaluated with CT with pancreatic protocol. 5. Moderate-sized hiatal hernia. 6. Severe multifocal degenerative change in the lumbar spine is identified with facet arthropathy and multilevel disc bulging causing foraminal stenosis and narrowing the exiting nerve roots, particularly in the lower lumbar spine. D/ / 03/28/2018 19:16:20 Enio Vance / chris Interpreting Provider: Enio Vance Lumbar Spine CT 03/28/18 16:00 IMPRESSION: 1. A 32 mm concerning appearing mass in the posterior basal right lower lobe. 2. A 3.6 cm left hepatic lobe cyst. Other low-density lesions are difficult to characterize on unenhanced evaluation. 3. Cholelithiasis. 4. Nonspecific area of increased attenuation within the head of the pancreas may be further evaluated with CT with pancreatic protocol. 5. Moderate-sized hiatal hernia. 6. Severe multifocal degenerative change in the lumbar spine is identified with facet arthropathy and multilevel disc bulging causing foraminal stenosis and narrowing the exiting nerve roots, particularly in the lower lumbar spine. D/ / 03/28/2018 19:16:20 Enio Vance / chris Interpreting Provider: Enio Vance Exam - Constitutional Vitals: Temp Pulse Resp BP Pulse Ox 98.9 F 84 15 124/66 96 03/29/18 06:27 03/29/18 06:27 03/29/18 06:27 03/29/18 06:27 03/29/18 06:27 General appearance: cooperative, no acute distress, obese - Head Head exam: Present: atraumatic, normal inspection, normocephalic - Eye Eye exam: Present: EOMI, normal appearance, PERRL Pupils: Present: normal accommodation - ENT ENT exam: Present: mucous membranes moist - Neck Neck exam: Present: normal inspection - Respiratory Respiratory exam: Present: wheezes (Faint expiratory wheezes RUL, [place]). Absent : rales, respiratory distress, rhonchi - Cardiovascular Cardiovascular exam: Present: RRR, +S1, +S2 - GI/Abdominal GI/Abdominal exam: Present: distended (obese), normal bowel sounds, soft. Absent: tenderness - Extremities Exam Extremities exam: Present: normal inspection. Absent: joint swelling, pedal edema, tenderness - Back Exam Back exam: Present: normal inspection. Absent: CVA tenderness (L), CVA tenderness (R), paraspinal tenderness, vertebral tenderness - Neurological Exam Neurological exam: Present: alert, oriented X3, no focal deficits - Psychiatric Psychiatric exam: Present: normal affect, normal mood - Skin Skin exam: Present: dry, intact, normal color, warm Consult Discharge Plan - Plan Referrals: Kelly Montes De Oca, IRRIGATION SPECIALIST [Primary Care Provider] - - Attending Attestation I examined this patient and my medical decision-making was reviewed with the Resident Physician. I agree with the documented findings, disposition and treatment plan as described except to the extent set forth below.
[2018-03-29] MEDS ORDERED: *HR* Metoprolol 5 MG/5 ML VIAL IVP ONE ×3 (11:31→21:00)
[2018-03-29] MEDS: Acetaminophen 325 MG TABLET PO PRN (12:20)
--- NOTE | 2018-03-29 13:08 | Internal Med Progress Note ---
Date of Encounter: 03/29/18 Time of Encounter: 11:00 - Assessment and plan (1) Cavitating mass in right lower lung lobe Current Visit: Yes Status: Acute Assessment and plan: Suspect malignancy, high risk for squamous cell lung cancer. Patient recently on Xarelto which complicates biopsy at this time. Klebsiella oxytoca infection would have some similar presentation. Plan Reimaging and likely radial ultrasonic-assisted bronchoscopy. Pulmonary is following. (2) CAP (community acquired pneumonia) Current Visit: Yes Status: Acute Assessment and plan: Blood culture positive K. oxytoca. No distinct infiltrate on CT chest but a cavitatory lesion. No poor dentition. Doubt CAP. Plan Rocephin should provide adequate coverage Qualifiers: Laterality: right Lung location: lower lobe of lung Qualified Code(s): J18.1 - Lobar pneumonia, unspecified organism (3) Bacteremia due to Gram-negative bacteria Current Visit: Yes Status: Acute Assessment and plan: Gallbladder UTS showed gallstones without cholecystitis, hepatic cysts, and angiomyolipoma of the right kidney. LFTs initially elevated, improved. CT of the abdomen and pelvis shows RLL lung mass, left hepatic lobe cyst, and a nonspecific area of increased attenuation within the head of the pancreas. CT of the L-spine showed degenerative changes with disc bulging at multiple levels. Plan Recheck urine cultures and urinalysis Follow repeat blood cultures from 03/20/2018 (4) Constipation Current Visit: Yes Status: Acute Assessment and plan: Plan: - miralax and docusate Qualifiers: Constipation type: unspecified constipation type Qualified Code(s): K59.00 - Constipation, unspecified (5) Diabetes type 2, controlled Current Visit: Yes Status: Acute Assessment and plan: Newly diagnosed at [place]. A1c= 7.5%. Most likely cause of her peripheral neuropathy. 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 Continue Lopressor Reassess for starting Xarelto based on biopsy plan IV push Lopressor when necessary for heart rate more than 110 Change albuterol to ipratropium (7) DVT prophylaxis Current Visit: Yes Status: Acute Assessment and plan: continue Xarelto (8) Urinary incontinence Current Visit: Yes Status: Acute Assessment and plan: Patient states that she has a history of stress incontinence but has had worsening incontinence for the past week that she has been unable to control. Concern for mets to the spinal cord or brain. Head CT showed no lesions, unable to do MRI due to pacemaker. CT lumbar without contrast unremarkable. Likely related to urinary source of infection. Qualifiers: Urinary Incontinence type: unspecified incontinence Qualified Code(s): R32 - Unspecified urinary incontinence (9) Nausea & vomiting Current Visit: Yes Status: Acute Assessment and plan: CT abdomen and pelvis showed 3.2 cm right lower lobe mass, 3.6 cm left hepatic lobe cyst, cholelithiasis, nonspecific area of increased attenuation within the head of the pancreas, moderate size hiatal hernia, and degenerative disc disease of the lumbar spine. Qualifiers: Vomiting type: cyclical vomiting Vomiting Intractability: non-intractable Qualified Code(s): G43.A0 - Cyclical vomiting, not intractable - Time Spent With Patient Total time spent is greater than 50% in coordination of care (as documented) at patient's floor/unit and/or counseling patient: 25 - 35 minutes - Subjective Interval history: Per suprapubic pain. Dysuria. No events overnight. - Constitutional Vitals: Temp Pulse Resp BP Pulse Ox 99.4 F 105 18 136/88 95 03/29/18 12:06 03/29/18 12:06 03/29/18 12:06 03/29/18 12:03/29/18 12:06 Exam: Physical exam Gen: Comfortable, laying in bed, in no visible distress HEENT: Normocephalic, atraumatic. No conjunctival icterus. Moist oral mucosa. Neck: Supple Lungs: Clear to auscultation, no foreign sounds Heart: Normal S1-S2, no murmurs rubs or gallops Abdomen: Normoactive bowel sounds, no guarding or rigidity, suprapubic tenderness noted, Extremities: No edema clubbing or cyanosis Neuro: Alert oriented 3, no focal deficits Skin: No skin lesions Internal Medicine: Result - Labs CBC & Chem 7: 03/29/18 00:49 03/29/18 00:49 Labs: Short CBC 03/29/18 Range/Units 00:49 WBC 7.3 (4.3-11.1) K/mcL Hgb 10.5 L (11.5-15.4) g/dL Hct 33.8 L (35.3-44.9) % Plt Count 208 (140-400) K/mcL Neutrophils # 5.2 (1.6-8.9) K/mcL BMP 03/29/18 00:49 Sodium 141 Potassium 3.5 Chloride 102 Carbon Dioxide 32 H BUN 12 Creatinine 0.72 Glucose 164 H Calcium 8.5 L - ABG Interpretation ABG results: PT/INR, D-dimer PT 12.9 Seconds (9.4-12.1) H 03/29/18 10:00 - Impressions Impressions Abdomen/Pelvis CT 03/28/18 16:00 IMPRESSION: 1. A 32 mm concerning appearing mass in the posterior basal right lower lobe. 2. A 3.6 cm left hepatic lobe cyst. Other low-density lesions are difficult to characterize on unenhanced evaluation. 3. Cholelithiasis. 4. Nonspecific area of increased attenuation within the head of the pancreas may be further evaluated with CT with pancreatic protocol. 5. Moderate-sized hiatal hernia. 6. Severe multifocal degenerative change in the lumbar spine is identified with facet arthropathy and multilevel disc bulging causing foraminal stenosis and narrowing the exiting nerve roots, particularly in the lower lumbar spine. D/ / 03/28/2018 19:16:20 Enio Vance / chris Interpreting Provider: Enio Vance Lumbar Spine CT 03/28/18 16:00 IMPRESSION: 1. A 32 mm concerning appearing mass in the posterior basal right lower lobe. 2. A 3.6 cm left hepatic lobe cyst. Other low-density lesions are difficult to characterize on unenhanced evaluation. 3. Cholelithiasis. 4. Nonspecific area of increased attenuation within the head of the pancreas may be further evaluated with CT with pancreatic protocol. 5. Moderate-sized hiatal hernia. 6. Severe multifocal degenerative change in the lumbar spine is identified with facet arthropathy and multilevel disc bulging causing foraminal stenosis and narrowing the exiting nerve roots, particularly in the lower lumbar spine. D/ / 03/28/2018 19:16:20 Enio Vance / chris Interpreting Provider: Enio Vance Consult Discharge Plan - Plan Referrals: Kelly Montes De Oca, GRASS F[employer]ER [Primary Care Provider] -
[2018-03-29] MEDS ORDERED: *HR* Digoxin 0.5 MG/2 ML AMPUL IVP ONE (19:16)
[2018-03-29] MEDS ORDERED: Fluticasone/Vilanterol [Breo Ellipta 100-25 Mcg Inh] IH SCH (21:00)
[2018-03-29] MEDS: Ipratropium Neb 0.5 MG NEBULIZER IH SCH (22:02)
[2018-03-30] MEDS: Insulin LISPRO 300 UNITS/3 ML VIAL SQ SCH ×5 (01:17→17:43)
[2018-03-30] MEDS: Ipratropium Neb 0.5 MG NEBULIZER IH SCH ×4 (03:59→21:35)
[2018-03-30 06:20] LABS: Basophils % 0.4 %; Eosinophils # 0.1 K/mcL (0.0-0.6); Eosinophils % 1.6 %; Hematocrit 36.1 % (35.3-44.9); Hemoglobin 11.2 g/dL (11.5-15.4); Immature Granulocytes % 0.4 % (0-4); Lymphocytes # 1.2 K/mcL (0.6-4.6); Lymphocytes % 14.7 %; Mean Corpuscular Hemoglobin 27.7 pg (28.0-33.3); Mean Corpuscular Volume 89.4 fL (83.0-100.0); Mean Platelet Volume 9.9 fL (9.4-12.4); Monocytes # 0.6 K/mcL (0.0-1.3); Monocytes % 7.4 %; Neutrophils # 6.1 K/mcL (1.6-8.9); Platelet Count 231 K/mcL (140-400); Red Blood Count 4.04 M/mcL (3.82-4.97); Red Cell Distribution Width 13.6 % (11.5-14.5); Segmented Neutrophils % 75.5 %
[2018-03-30 06:41] LABS: BUN/Creatinine Ratio 17 (6-26); Blood Urea Nitrogen 11 mg/dL (8-23); Calcium 8.6 mg/dL (8.6-10.3); Carbon Dioxide 28 mEq/L (23-29); Chloride 106 mEq/L (98-107); Glucose 149 mg/dL (70-105); Osmolality,Calculated 294 (280-300); Potassium 3.8 mEq/L (3.5-5.1); Sodium 141 mEq/L (136-145); eGFR For African Americans > 60 (> 60); eGFR For Non-African Americans > 60 (> 60)
[2018-03-30] MEDS: *HR* Digoxin 0.125 MG TABLET PO SCH (09:18)
[2018-03-30] MEDS: cefTRIAXone 2,000 MG in 0.9 % Sodium Chloride Mini Bag 100 ML IVPB SCH (10:42)
--- NOTE | 2018-03-30 11:19 | Internal Med Progress Note ---
Date of Encounter: 03/30/18 Time of Encounter: 11:00 - Assessment and plan (1) Cavitating mass in right lower lung lobe Current Visit: Yes Status: Acute Assessment and plan: Suspect malignancy, high risk for squamous cell lung cancer. Patient recently on Xarelto which complicates biopsy at this time. Klebsiella oxytoca infection would have some similar presentation. Plan Reimaging and likely radial ultrasound-assisted bronchoscopy. Pulmonary is following. (2) CAP (community acquired pneumonia) Current Visit: Yes Status: Acute Assessment and plan: Blood culture positive K. oxytoca. No distinct infiltrate on CT chest but a cavitatory lesion. No poor dentition. Doubt CAP. Plan Rocephin should provide adequate coverage Qualifiers: Laterality: right Lung location: lower lobe of lung Qualified Code(s): J18.1 - Lobar pneumonia, unspecified organism (3) Bacteremia due to Gram-negative bacteria Current Visit: Yes Status: Acute Assessment and plan: Gallbladder UTS showed gallstones without cholecystitis, hepatic cysts, and angiomyolipoma of the right kidney. LFTs initially elevated, improved. CT of the abdomen and pelvis shows RLL lung mass, left hepatic lobe cyst, and a nonspecific area of increased attenuation within the head of the pancreas. CT of the L-spine showed degenerative changes with disc bulging at multiple levels. Plan Recheck urine cultures and urinalysis. This was not done because patient is incontinent and was unable to provide a sample. Follow repeat blood cultures from 03/20/2018 Continue Rocephin (4) Constipation Current Visit: Yes Status: Acute Assessment and plan: Plan: - miralax and docusate Qualifiers: Constipation type: unspecified constipation type Qualified Code(s): K59.00 - Constipation, unspecified (5) Diabetes type 2, controlled Current Visit: Yes Status: Acute Assessment and plan: Newly diagnosed at [place]. A1c= 7.5%. Most likely cause of her peripheral neuropathy. plan: - low sliding scale - accu checks TIDAC Qualifiers: Diabetes mellitus assistant terminal manager insulin use: without alf use Diabetes mellitus complication status: with neurologic complications Diabetes mellitus complication detail: with polyneuropathy Qualified Code(s): E11.42 - Type 2 diabetes mellitus with diabetic polyneuropathy (6) Paroxysmal A-fib Current Visit: Yes Status: Chronic Assessment and plan: Plan Resume digoxin at 125 g daily instead of 250 every other day. Reloaded digoxin 0.5 mg last night after blood levels were 0.5 Continue Lopressor. Consider increasing dose if not off Cardizem by tomorrow. Continue Cardizem infusion Resume Xarelto (7) Urinary incontinence Current Visit: Yes Status: Acute Assessment and plan: Patient states that she has a history of stress incontinence but has had worsening incontinence for the past week that she has been unable to control. Concern for mets to the spinal cord or brain. Head CT showed no lesions, unable to do MRI due to pacemaker. CT lumbar without contrast unremarkable. Likely related to urinary source of infection. Qualifiers: Urinary Incontinence type: unspecified incontinence Qualified Code(s): R32 - Unspecified urinary incontinence (8) Nausea & vomiting Current Visit: Yes Status: Acute Assessment and plan: CT abdomen and pelvis showed 3.2 cm right lower lobe mass, 3.6 cm left hepatic lobe cyst, cholelithiasis, nonspecific area of increased attenuation within the head of the pancreas, moderate size hiatal hernia, and degenerative disc disease of the lumbar spine. Qualifiers: Vomiting type: cyclical vomiting Vomiting Intractability: non-intractable Qualified Code(s): G43.A0 - Cyclical vomiting, not intractable (9) DVT prophylaxis Current Visit: Yes Status: Acute Assessment and plan: continue Xarelto - Time Spent With Patient Total time spent is greater than 50% in coordination of care (as documented) at patient's floor/unit and/or counseling patient: 25 - 35 minutes - Subjective Interval history: She is anxious about medical plan, diagnosis of possible cancer and had atrial fibrillation with rapid ventricular rate overnight. No new nursing issues identified. - Constitutional Vitals: Temp Pulse Resp BP Pulse Ox 98.8 F 83 20 124/71 94 03/30/18 10:00 03/30/18 10:00 03/30/18 10:00 03/30/18 10:03/30/18 10:00 Exam: Physical exam Gen: Comfortable, laying in bed, in no visible distress, obese HEENT: Normocephalic, atraumatic. No conjunctival icterus. Moist oral mucosa. Neck: Supple Lungs: Clear to auscultation, no foreign sounds Heart: Normal S1-S2, no murmurs rubs or gallops Abdomen: Normoactive bowel sounds, no guarding rigidity, suprapubic tenderness improved since yesterday Extremities: No edema clubbing or cyanosis Neuro: Alert oriented 3, no focal deficits Skin: No skin lesions Internal Medicine: Result - Labs CBC & Chem 7: 03/30/18 05:12 03/30/18 05:12 Labs: Short CBC 03/30/18 Range/Units 05:12 WBC 8.1 (4.3-11.1) K/mcL Hgb 11.2 L (11.5-15.4) g/dL Hct 36.1 (35.3-44.9) % Plt Count 231 (140-400) K/mcL Neutrophils # 6.1 (1.6-8.9) K/mcL BMP 03/30/18 05:12 Sodium 141 Potassium 3.8 Chloride 106 Carbon Dioxide 28 BUN 11 Creatinine 0.66 Glucose 149 H Calcium 8.6 - ABG Interpretation ABG results: PT/INR, D-dimer PT 12.9 Seconds (9.4-12.1) H 03/29/18 10:00 - Impressions Impressions Abdomen/Pelvis CT 03/28/18 16:00 IMPRESSION: 1. A 32 mm concerning appearing mass in the posterior basal right lower lobe. 2. A 3.6 cm left hepatic lobe cyst. Other low-density lesions are difficult to characterize on unenhanced evaluation. 3. Cholelithiasis. 4. Nonspecific area of increased attenuation within the head of the pancreas may be further evaluated with CT with pancreatic protocol. 5. Moderate-sized hiatal hernia. 6. Severe multifocal degenerative change in the lumbar spine is identified with facet arthropathy and multilevel disc bulging causing foraminal stenosis and narrowing the exiting nerve roots, particularly in the lower lumbar spine. D/ / 03/28/2018 19:16:20 Enio Vance / chris Interpreting Provider: Enio Vance Lumbar Spine CT 03/28/18 16:00 IMPRESSION: 1. A 32 mm concerning appearing mass in the posterior basal right lower lobe. 2. A 3.6 cm left hepatic lobe cyst. Other low-density lesions are difficult to characterize on unenhanced evaluation. 3. Cholelithiasis. 4. Nonspecific area of increased attenuation within the head of the pancreas may be further evaluated with CT with pancreatic protocol. 5. Moderate-sized hiatal hernia. 6. Severe multifocal degenerative change in the lumbar spine is identified with facet arthropathy and multilevel disc bulging causing foraminal stenosis and narrowing the exiting nerve roots, particularly in the lower lumbar spine. D/ / 03/28/2018 19:16:20 Enio Vance / chris Interpreting Provider: Enio Vance - VTE Documentation of Mechanical Device: Intermittent pneumatic compression device Consult Discharge Plan - Plan Referrals: Kelly Montes De Oca, BATON TWIRLER [Primary Care Provider] -
[2018-03-30 12:07] LABS: Bilirubin,Urine Negative (Negative); Blood,Urine Moderate (Negative); Color,Urine Yellow (Yellow); Glucose,Urine (UA) Normal (Normal); Ketones,Urine Trace mg/dL (Negative); Leukocyte Esterase,Urine Negative (Negative); Nitrite,Urine Negative (Negative); PH,Urine 6.5 pH Units (5.0-8.0); Protein,Urine Trace mg/dL (Neg-Trace); Specific Gravity,Urine 1.022 (1.010-1.025); Urobilinogen,Urine Normal (Normal)
[2018-03-30 12:10] LABS: Bacteria,Urine None Seen per hpf (None-Few); Squamous Epithelial Cell,Urine Many per lpf (None-Few)
[2018-03-30 12:11] LABS: Clarity,Urine Slightly Hazy (Clear)
[2018-03-30 12:37] LABS: Mucus,Urine Many (Few)
[2018-03-30 12:41] LABS: RBC,Urine 50-100 per hpf (0-3)
[2018-03-30] MEDS ORDERED: *HR* Rivaroxaban 10 MG TABLET PO SCH (17:00)
--- NOTE | 2018-03-30 17:01 | Infectious Disease Progress No ---
Date of Encounter: 03/30/18 Time of Encounter: 16:58 - Assessment and Plan (1) Bacteremia due to Gram-negative bacteria Current Visit: Yes Status: Acute Causative organism: K. oxytoca. Source unclear, but likely intra-abdominal. Blood cultures drawn 03/25/18 at [facility] are positive 3/4 sets. Repeat blood cultures drawn 03/28/18 are pending x 2 sets. Gallbladder UTS showed gallstones without cholecystitis, hepatic cysts, and angiomyolipoma of the right kidney. LFTs initially elevated, improved. CT of the abdomen and pelvis shows RLL lung mass, left hepatic lobe cyst, and a nonspecific area of increased attenuation within the head of the pancreas. CT of the L-spine showed degenerative changes with disc bulging at multiple levels. Continue Rocephin 2 grams IV daily. The patient does have documented allergy to PCN, but it was a nonspecific itching rash and was a very long time ago. She appears to be tolerating Rocephin without a problem. Repeat cultures from [place] on March are no growth to date. Patient clinically doing well. I think we can switch her to oral antibiotics. Consider switching to Omnicef 300 mg twice a day. Please treat through April 07. (2) Cavitating mass in right lower lung lobe Current Visit: Yes Status: Acute Etiology unclear: neoplasm vs. infections vs. other. Pulmonology consulted and following. Planning for transthoracic biopsy per IR--> IR declined procedure and recommended transbronchial biopsy. Please send specimen for culture (aerobic, anaerobic, AFB, and fungal). Continue antibiotics as above. (3) Constipation Current Visit: Yes Status: Acute Patient reports small BM yesterday. Bowel regimen per the primary team. Qualifiers: Constipation type: unspecified constipation type Qualified Code(s): K59.00 - Constipation, unspecified (4) Diabetes type 2, controlled Current Visit: Yes Status: Acute Hgb A1C 7.2%. Recommend aggressive glucose monitoring and control to promote wound healing and prevent re-infection. Management per the primary team. Qualifiers: Diabetes mellitus fci insulin use: without moth exterminator use Diabetes mellitus complication status: with neurologic complications Diabetes mellitus complication detail: with polyneuropathy Qualified Code(s): E11.42 - Type 2 diabetes mellitus with diabetic polyneuropathy (5) Paroxysmal A-fib Current Visit: Yes Status: Chronic Rate controlled at this time. Management per the primary team. (6) COPD (chronic obstructive pulmonary disease) Current Visit: Yes Status: Acute Qualifiers: COPD type: unspecified COPD Qualified Code(s): J44.9 - Chronic obstructive pulmonary disease, unspecified (7) Elevated LFTs Current Visit: Yes Status: Acute Etiology unclear. Gallbladder UTS showed gallstones, but no cholecystitis. Resolved. Continue to trend. (8) Gallstones Current Visit: Yes Status: Acute Noted on previous gallbladder UTS. - Subjective Interval history: Patient seen and examined. She is alone today. No family at bedside. States that she feels great. Denies any headache no chest pain no shortness of breath. No abdominal pain. No nausea no vomiting no urinary symptoms. Patient eager to go home. Infect Dis PN-Objective Data - Labs CBC & Chem 7: 03/30/18 05:12 03/30/18 05:12 Labs: Laboratory Results - last 24 hr 03/29/18 03/29/18 03/29/18 12:04 16:06 20:36 WBC RBC Hgb Hct MCV MCH MCHC RDW Plt Count MPV Immature Gran % Seg Neutrophils % Lymphocytes % Monocytes % Eosinophils % Basophils % Neutrophils # Lymphocytes # Monocytes # Eosinophils # Basophils # Sodium Potassium Chloride Carbon Dioxide BUN Creatinine Est GFR ( Amer) Est GFR (Non-Af Amer) BUN/Creatinine Ratio Glucose POC Glucose 131 H 176 H 164 H Calculated Osmolality Calcium Urine Color Urine Clarity Urine pH Ur Specific [place] Urine Protein Urine Glucose (UA) Urine Ketones Urine Blood Urine Nitrite Urine Bilirubin Urine Urobilinogen Ur Leukocyte Esterase Urine Microscopic RBC Urine Microscopic WBC Ur Squamous Epith Cells Urine Bacteria Hyaline Casts Urine Mucus Urine Yeast Ur Culture Indicated? 03/30/18 03/30/18 03/30/18 05:12 05:12 11:57 WBC 8.1 RBC 4.04 Hgb 11.2 L Hct 36.1 MCV 89.4 MCH 27.7 L MCHC 31.0 L RDW 13.6 Plt Count 231 MPV 9.9 Immature Gran % 0.4 Seg Neutrophils % 75.5 Lymphocytes % 14.7 Monocytes % 7.4 Eosinophils % 1.6 Basophils % 0.4 Neutrophils # 6.1 Lymphocytes # 1.2 Monocytes # 0.6 Eosinophils # 0.1 Basophils # 0.0 Sodium 141 Potassium 3.8 Chloride 106 Carbon Dioxide 28 BUN 11 Creatinine 0.66 Est GFR ( Amer) > 60 Est GFR (Non-Af Amer) > 60 BUN/Creatinine Ratio 17 Glucose 149 H POC Glucose Calculated Osmolality 294 Calcium 8.6 Urine Color Urine Clarity Urine pH Ur Specific [place] Urine Protein Urine Glucose (UA) Normal Urine Ketones Urine Blood Urine Nitrite Urine Bilirubin Urine Urobilinogen Ur Leukocyte Esterase Urine Microscopic RBC 50-100 H Urine Microscopic WBC 3-5 H Ur Squamous Epith Cells Many H Urine Bacteria None Seen Hyaline Casts Test Not Performed Urine Mucus Many H Urine Yeast Test Not Performed Ur Culture Indicated? NO 03/30/18 03/30/18 16:26 Unknown WBC RBC Hgb Hct MCV MCH MCHC RDW Plt Count MPV Immature Gran % Seg Neutrophils % Lymphocytes % Monocytes % Eosinophils % Basophils % Neutrophils # Lymphocytes # Monocytes # Eosinophils # Basophils # Sodium Potassium Chloride Carbon Dioxide BUN Creatinine Est GFR ( Amer) Est GFR (Non-Af Amer) BUN/Creatinine Ratio Glucose POC Glucose 155 H Calculated Osmolality Calcium Urine Color Yellow Urine Clarity Slightly Hazy Urine pH 6.5 Ur Specific [place] 1.022 Urine Protein Trace Urine Glucose (UA) Urine Ketones Trace H Urine Blood Moderate H Urine Nitrite Negative Urine Bilirubin Negative Urine Urobilinogen Normal Ur Leukocyte Esterase Negative Urine Microscopic RBC Urine Microscopic WBC Ur Squamous Epith Cells Urine Bacteria Hyaline Casts Urine Mucus Urine Yeast Ur Culture Indicated? Cultures: Cultures 03/28/18 16:30 Blood Culture - Preliminary Peripheral Venipuncture Culture is incubating and being continuously monitored for growth. Final report to follow. 03/28/18 16:30 Blood Culture - Preliminary Peripheral Venipuncture Culture is incubating and being continuously monitored for growth. Final report to follow. 03/28/18 16:30 Blood Culture - Preliminary Peripheral Venipuncture Culture is incubating and being continuously monitored for growth. Final report to follow. 03/28/18 04:42 Blood Culture - Preliminary Peripheral Venipuncture Culture is incubating and being continuously monitored for growth. Final report to follow. Serology 03/30/18 03/30/18 Range/Units Unknown 11:57 Urine Color Yellow (Yellow) Urine Clarity Slightly Hazy (Clear) Urine pH 6.5 (5.0-8.0) pH Units Ur Specific [place] 1.022 (1.010-1.025) Urine Protein Trace (Neg-Trace) mg/dL Urine Glucose (UA) Normal (Normal) mg/dL Urine Ketones Trace H (Negative) mg/dL Urine Blood Moderate H (Negative) Urine Nitrite Negative (Negative) Urine Bilirubin Negative (Negative) Urine Urobilinogen Normal (Normal) mg/dL Ur Leukocyte Esterase Negative (Negative) Urine Microscopic RBC 50-100 H (0-3) per hpf Urine Microscopic WBC 3-5 H (0-3) per hpf Ur Squamous Epith Cells Many H (None-Few) per lpf Urine Bacteria None Seen (None-Few) per hpf Hyaline Casts Test Not Performed Urine Mucus Many H (Few) Urine Yeast Test Not Performed Ur Culture Indicated? NO (NO) - Impressions Impressions Abdomen/Pelvis CT 03/28/18 16:00 IMPRESSION: 1. A 32 mm concerning appearing mass in the posterior basal right lower lobe. 2. A 3.6 cm left hepatic lobe cyst. Other low-density lesions are difficult to characterize on unenhanced evaluation. 3. Cholelithiasis. 4. Nonspecific area of increased attenuation within the head of the pancreas may be further evaluated with CT with pancreatic protocol. 5. Moderate-sized hiatal hernia. 6. Severe multifocal degenerative change in the lumbar spine is identified with facet arthropathy and multilevel disc bulging causing foraminal stenosis and narrowing the exiting nerve roots, particularly in the lower lumbar spine. D/ / 03/28/2018 19:16:20 Enio perez Interpreting Provider: Enio Vance Lumbar Spine CT 03/28/18 16:00 IMPRESSION: 1. A 32 mm concerning appearing mass in the posterior basal right lower lobe. 2. A 3.6 cm left hepatic lobe cyst. Other low-density lesions are difficult to characterize on unenhanced evaluation. 3. Cholelithiasis. 4. Nonspecific area of increased attenuation within the head of the pancreas may be further evaluated with CT with pancreatic protocol. 5. Moderate-sized hiatal hernia. 6. Severe multifocal degenerative change in the lumbar spine is identified with facet arthropathy and multilevel disc bulging causing foraminal stenosis and narrowing the exiting nerve roots, particularly in the lower lumbar spine. D/ / 03/28/2018 19:16:20 Enio Vance / chris Interpreting Provider: Enio Vance Exam - Constitutional Vitals: Temp Pulse Resp BP Pulse Ox 99.4 F 78 18 113/65 95 03/30/18 14:36 03/30/18 14:36 03/30/18 16:10 03/30/18 14:36 03/30/18 16:10 General appearance: no febrile, no no acute distress - Respiratory Respiratory exam: Present: CTAB, wheezes. Absent: rhonchi - Cardiovascular Cardiovascular exam: Present: RRR, +S1, +S2 - GI/Abdominal GI/Abdominal exam: Present: soft. Absent: tenderness Additional comments: Negative Gutierrez sign - VTE Documentation of Mechanical Device: Intermittent pneumatic compression device Consult Discharge Plan - Plan Referrals: Kelly Montes De Oca, [employer] [Primary Care Provider] -
[2018-03-30] MEDS ORDERED: 0.9 % Sodium Chloride 500 ML ONE (19:00)
[2018-03-30] MEDS: Acetaminophen 325 MG TABLET PO PRN (19:06)
[2018-03-30] MEDS ORDERED: Insulin LISPRO 300 UNITS/3 ML VIAL SQ SCH (21:00)
[2018-03-30] MEDS: Budesonide/Formoterol 80/4.5 MDI IH SCH (21:35)
[2018-03-31] MEDS: Ipratropium Neb 0.5 MG NEBULIZER IH SCH ×3 (03:30→15:59)
[2018-03-31 05:27] LABS: Basophils % 0.3 %; Eosinophils # 0.1 K/mcL (0.0-0.6); Eosinophils % 1.9 %; Hemoglobin 10.8 g/dL (11.5-15.4); Immature Granulocytes % 0.6 % (0-4); Lymphocytes # 1.1 K/mcL (0.6-4.6); Mean Corpuscular HGB Conc 30.9 g/dL (31.6-35.5); Mean Corpuscular Hemoglobin 27.2 pg (28.0-33.3); Mean Corpuscular Volume 88.2 fL (83.0-100.0); Mean Platelet Volume 9.4 fL (9.4-12.4); Monocytes # 0.5 K/mcL (0.0-1.3); Monocytes % 7.5 %; Neutrophils # 5.1 K/mcL (1.6-8.9); Platelet Count 259 K/mcL (140-400); Red Blood Count 3.97 M/mcL (3.82-4.97); Red Cell Distribution Width 13.7 % (11.5-14.5); Segmented Neutrophils % 73.7 %
[2018-03-31 05:45] LABS: BUN/Creatinine Ratio 19 (6-26); Blood Urea Nitrogen 12 mg/dL (8-23); Calcium 8.4 mg/dL (8.6-10.3); Carbon Dioxide 30 mEq/L (23-29); Chloride 106 mEq/L (98-107); Digoxin 0.7 ng/mL (0.8-2.0); Glucose 155 mg/dL (70-105); Osmolality,Calculated 299 (280-300); Potassium 3.4 mEq/L (3.5-5.1); Sodium 143 mEq/L (136-145); eGFR For African Americans > 60 (> 60); eGFR For Non-African Americans > 60 (> 60)
[2018-03-31] MEDS ORDERED: Diltiazem CD (24hr) 180 MG CAPSULE PO SCH (07:00)
[2018-03-31] MEDS ORDERED: Diltiazem CD (24hr) 120 MG CAPSULE PO SCH (07:00)
[2018-03-31] MEDS: Insulin LISPRO 300 UNITS/3 ML VIAL SQ SCH ×2 (08:18→12:04)
[2018-03-31] MEDS ORDERED: Cefdinir 300 MG CAPSULE PO SCH (09:00)
[2018-03-31] MEDS: *HR* Digoxin 0.125 MG TABLET PO SCH (10:18)
[2018-03-31] MEDS: Acetaminophen 325 MG TABLET PO PRN (10:20)
[2018-03-31] MEDS: Budesonide/Formoterol 80/4.5 MDI IH SCH (10:55)
--- NOTE | 2018-03-31 12:33 | Event Note ---
Date of Encounter: 03/31/18 Time of Encounter: 12:31 - Cardiology Event Note Discussed with Dr. George. Cardiology asked to review medications and make recommendations for A-Fib. Was PAF RVR on Cardizem gtt, now back in SR. Known hx PAF. Home meds included digoxin and Lopressor 50mg BID. Anticoagulated on Xarelto. Currently pt is on Digoxin, Lopressor 50mg BID and PO Cardizem CD 180mg daily was added. Agree with addition of Cardizem. EF preserved TTE 09/2017. Suspect PAF RVR is currently driven by Bacteremia/infection and lung mass. Okay to hold xarelto if any procedures are warranted. Will coordinate outpt follow-up with Dr. Best in 2-3 weeks. Please reconsult if any further recommendations are needed.
--- NOTE | 2018-03-31 15:24 | Discharge Summary ---
- NOTES TO OUTPATIENT PROVIDER Notes to Outpatient Provider: Patient hospitalized with bacteremia due to gram- negative bacteria along with a cavitating mass in the right lower lobe. She was treated with IV antibiotics and pulmonology consulted. Due to the location of the cavitary lesion, patient has been recommended navigational bronchoscopy which will be done as outpatient. In the meantime patient blood cultures grew Klebsiella oxytoca. Repeat blood cultures have been negative here. Patient also developed rapid A. fib. She does have a history of atrial fibrillation and was on digoxin. Her digoxin dose has been decreased and she has been placed on Cardizem with improvement in her heart rate. She is now converted to sinus rhythm. At this time she is clinically stable to be discharged. She was discharged to skilled rehabilitation and will complete oral course of antibiotics and will follow up with pulmonology for bronchoscopy. Orders not resulted at time of discharge: Pending orders 03/28/18 04:42 Culture,Blood [BC] AM 0400 03/28/18 16:30 Culture,Blood [BC] Stat Culture,Blood,Additional [BC] Stat Date of Encounter: 03/31/18 Time of Encounter: 15:20 - Discharge Diagnosis (1) Cavitating mass in right lower lung lobe Priority: Primary Status: Acute (2) CAP (community acquired pneumonia) Priority: Secondary Status: Acute Qualifiers: Laterality: right Lung location: lower lobe of lung Qualified Code(s): J18.1 - Lobar pneumonia, unspecified organism (3) Bacteremia due to Gram-negative bacteria Priority: Secondary Status: Acute (4) Constipation Priority: Secondary Status: Acute Qualifiers: Constipation type: unspecified constipation type Qualified Code(s): K59.00 - Constipation, unspecified (5) Diabetes type 2, controlled Priority: Secondary Status: Acute Qualifiers: Diabetes mellitus termite helper insulin use: without termite helper use Diabetes mellitus complication status: with neurologic complications Diabetes mellitus complication detail: with polyneuropathy Qualified Code(s): E11.42 - Type 2 diabetes mellitus with diabetic polyneuropathy (6) Paroxysmal A-fib Priority: Secondary Status: Chronic (7) DVT prophylaxis Priority: Secondary Status: Acute (8) Urinary incontinence Priority: Secondary Status: Acute Qualifiers: Urinary Incontinence type: unspecified incontinence Qualified Code(s): R32 - Unspecified urinary incontinence (9) Nausea & vomiting Priority: Secondary Status: Acute Qualifiers: Vomiting type: cyclical vomiting Vomiting Intractability: non-intractable Qualified Code(s): G43.A0 - Cyclical vomiting, not intractable Hospital course: Ms. Douglas is a 82 year old female Patient with history of COPD, diabetes, hypertension, hyperlipidemia who was hospitalized with bacteremia due to gram- negative bacteria along with a cavitating mass in the right lower lobe. She was treated with IV antibiotics and pulmonology consulted. Due to the location of the cavitary lesion, patient has been recommended navigational bronchoscopy which will be done as outpatient. In the meantime patient blood cultures grew Klebsiella oxytoca. Repeat blood cultures have been negative here. Patient also developed rapid A. fib. She does have a history of atrial fibrillation and was on digoxin. Her digoxin dose has been decreased and she has been placed on Cardizem with improvement in her heart rate. She is now converted to sinus rhythm. At this time she is clinically stable to be discharged. She was discharged to skilled rehabilitation and will complete oral course of antibiotics and will follow up with pulmonology for bronchoscopy. Discharge discussed with: patient, family, nurse, case management - Time Spent with Patient Total time spent providing and/or coordinating discharge services: Greater than 30 minutes (45 min) - Discharge Medications Prescriptions: Cefdinir [Omnicef] 300 mg PO BID #15 capsule Diltiazem CD (24hr) [Cardizem CD] 180 mg PO 0700 #30 cap.er.24h Home Medications: Acetaminophen [Tylenol] 650 mg PO Q6HR PRN 07/04/15 [History] Albuterol Sulfate [Proventil Hfa] 2 puff Q4H PRN 07/04/15 [History] Multivitamin [Flintstones] 1 each PO DAILY 07/04/15 [History] Fluticasone/Vilanterol [Breo Ellipta 100-25 Mcg INH] 1 each IH HS 01/01/16 [ History] Rivaroxaban [Xarelto] 20 mg PO HS 03/27/18 [History] Furosemide [Lasix] 40 mg PO BID 03/28/18 [History] Loratadine [Allergy Relief] 10 mg PO DAILY 03/28/18 [History] Losartan Potassium [Cozaar] 50 mg PO DAILY 03/28/18 [History] Metoprolol Tartrate [Lopressor] 50 mg PO BID 03/28/18 [History] Omeprazole [PriLOSEC] 40 mg PO DAILY 03/28/18 [History] Potassium Chloride [K-Tab ER] 20 meq PO TID 03/28/18 [History] Simvastatin [Zocor] 40 mg PO HS 03/28/18 [History] Tiotropium [Spiriva] 1 aerosol IH DAILY 03/28/18 [History] Cefdinir [Omnicef] 300 mg PO BID #15 capsule 03/31/18 [Rx] Digoxin [Lanoxin] 0.125 mg PO DAILY tablet 03/31/18 [Rx] Diltiazem CD (24hr) [Cardizem CD] 180 mg PO 0700 #30 cap.er.24h 03/31/18 [Rx] Allergies/Adverse Reactions: 3 Allergy/AdvReac Type Severity Reaction Status Date / Time codeine Allergy Anxiety Verified 07/04/15 08:05 Penicillins [PCN] Allergy Itching Verified 07/04/15 08:04 Date of admission: 03/28/18 06:12 Primary care physician: Kelly Montes De Oca CNP Consults: 03/28/18 02:26 Consult to Occupational Therapy [CONS] Routine Comment: Evaluate, develop and implement POC Reason for Consult: weakness LE Does patient have active BEDREST order?: No Is patient medically & hemodynamically stable?: Yes Patient assessed for mobility or mobilized this visit?: No Consult to Physical Therapy [CONS] Routine Comment: Evaluate, develop and implement POC Reason for Consult: weakness bilateral LE Does patient have active BEDREST order?: No Is patient medically & hemodynamically stable?: Yes Patient assessed for mobility or mobilized this visit?: No 03/28/18 04:17 Consult to Infectious Diseases [CONS] Routine Consulting Provider: Infectious Disease [place] Reason for Consult: bacteremia, Klebsiella oxytoca Time Notified: 04:19 Call Completed: No Consult to Pulmonology [CONS] Routine Consulting Provider: [facility] [place] Reason for Consult: RLL mass on CT, need biopsy Time Notified: 04:18 Call Completed: No 03/28/18 13:15 Consult to Interventional Radiology [CONS] Routine Consulting Provider: Radiology Interventional [place] Reason for Consult: Needle guided biopsy of lung Time Notified: 13:16 Call Completed: Yes 03/31/18 07:57 Consult to Cardiology [CONS] Routine Comment: Consulting Provider: Cardiology [place] Reason for Consult: AFib with RVR on IV cardizem Gtt Time Notified: 07:57 Call Completed: Yes Discharging clinician: Nancy George Anticipated date of discharge: 03/31/18 - Constitutional Vitals: Temp Pulse Resp BP Pulse Ox 98.8 F 69 18 98/64 93 03/31/18 11:59 03/31/18 11:59 03/31/18 11:59 03/31/18 11:59 03/31/18 11:59 General appearance: Present: cooperative, A&O X 3, answers questions appropriately - Neck Neck exam general surgery: Present: supple, trachea midline. Absent: lymphadenopathy - Respiratory Respiratory exam: Present: CTAB. Absent: accessory muscle use, rales, rhonchi, wheezes - Cardiovascular Cardiovascular exam: Present: RRR, +S1, +S2. Absent: diastolic murmur, gallop, rubs, systolic murmur - Neurological Exam Neurological exam: Present: alert, oriented X3, no focal deficits. Absent: facial droop, speech deficit - Patient Status Disposition: Transfer SNF Condition: Fair Functional capacity at discharge: wheelchair bound Overall status at discharge: patient is progressing back to baseline - Discharge Instructions Instructions: Chronic Obstructive Pulmonary Disease (DC), Pneumonia (DC) Follow Up With: Kelly Montes De Oca CNP [Primary Care Provider] - (in 1-2 weeks) Mayur Webber MD [Partnered Physician] - (in 1 week for follow up and possible navigational bronchoscopy Office will call with appointment to [facility] @ [phone]) Kaiser Aguirre MD [Partnered Physician] - (Nephrolithiasis with acute bacteremia in 1-2 weeks) - Diet and Activity Activity: as per physical therapy, increase activity as tolerated Diet: diabetic diet, low fat, low cholesterol, low salt diet - VTE Documentation of Mechanical Device: Intermittent pneumatic compression device
--- NOTE | 2018-03-31 15:43 | Physician Discharge Referral ---
ExtendedCare Referral Info Provider in Charge after Transfer: PCP Institutional Level of Care: Skilled - Diagnosis (1) Cavitating mass in right lower lung lobe Priority: Primary Status: Acute (2) CAP (community acquired pneumonia) Priority: Secondary Status: Acute (3) Bacteremia due to Gram-negative bacteria Priority: Secondary Status: Acute (4) Constipation Priority: Secondary Status: Acute (5) Diabetes type 2, controlled Priority: Secondary Status: Acute (6) Paroxysmal A-fib Priority: Secondary Status: Chronic (7) DVT prophylaxis Priority: Secondary Status: Acute (8) Urinary incontinence Priority: Secondary Status: Acute (9) Nausea & vomiting Priority: Secondary Status: Acute Prognosis: Fair Aware of Diagnosis: Patient, Family Aware of Prognosis: Patient, Family - Transfer Medications Prescriptions: Cefdinir [Omnicef] 300 mg PO BID #15 capsule Diltiazem CD (24hr) [Cardizem CD] 180 mg PO 0700 #30 cap.er.24h Home Medications: Acetaminophen [Tylenol] 650 mg PO Q6HR PRN 07/04/15 [History] Albuterol Sulfate [Proventil Hfa] 2 puff Q4H PRN 07/04/15 [History] Multivitamin [Flintstones] 1 each PO DAILY 07/04/15 [History] Fluticasone/Vilanterol [Breo Ellipta 100-25 Mcg INH] 1 each IH HS 01/01/16 [ History] Rivaroxaban [Xarelto] 20 mg PO HS 03/27/18 [History] Furosemide [Lasix] 40 mg PO BID 03/28/18 [History] Loratadine [Allergy Relief] 10 mg PO DAILY 03/28/18 [History] Losartan Potassium [Cozaar] 50 mg PO DAILY 03/28/18 [History] Metoprolol Tartrate [Lopressor] 50 mg PO BID 03/28/18 [History] Omeprazole [PriLOSEC] 40 mg PO DAILY 03/28/18 [History] Potassium Chloride [K-Tab ER] 20 meq PO TID 03/28/18 [History] Simvastatin [Zocor] 40 mg PO HS 03/28/18 [History] Tiotropium [Spiriva] 1 aerosol IH DAILY 03/28/18 [History] Cefdinir [Omnicef] 300 mg PO BID #15 capsule 03/31/18 [Rx] Digoxin [Lanoxin] 0.125 mg PO DAILY tablet 03/31/18 [Rx] Diltiazem CD (24hr) [Cardizem CD] 180 mg PO 0700 #30 cap.er.24h 03/31/18 [Rx] Allergies/Adverse Reactions: 3 Allergy/AdvReac Type Severity Reaction Status Date / Time codeine Allergy Anxiety Verified 07/04/15 08:05 Penicillins [PCN] Allergy Itching Verified 07/04/15 08:04 - Respiratory Orders Oxygen / L per min (Sats greater than 92%) Smoking Cessation: Smoking cessation has been advised. For more information, call the [place] Tobacco Quit Line at 0-377-EVOQ-NOW. - Advance Directives Code Status: Full Code - Mobility Orders Ambulate (per PT) - Rehabiliation Orders Rehab Potential: Fair Rehab Orders: Evaluation for Physical Therapy, Evaluation for Occupational Therapy - Diet Orders Cardiac CERTIFICATION: I certify that the transfer of the above named patient to an Extended Care Facility is necessary for the continuing treatment of the diagnosis listed. The above information is true and accurate reflection of patient's current condition. Confidential - Redisclosure prohibited without a patient's written consent.
[2018-03-31 15:48] VITALS: BP 125/67
--- NOTE | 2018-03-31 16:44 | Infectious Disease Progress No ---
Date of Encounter: 03/31/18 Time of Encounter: 16:43 - Assessment and Plan (1) Bacteremia due to Gram-negative bacteria Current Visit: Yes Status: Acute Causative organism: K. oxytoca. Source unclear, but likely intra-abdominal. Blood cultures drawn 03/25/18 at [facility] are positive 3/4 sets. Repeat blood cultures drawn 03/28/18 are pending x 2 sets. Gallbladder UTS showed gallstones without cholecystitis, hepatic cysts, and angiomyolipoma of the right kidney. LFTs initially elevated, improved. CT of the abdomen and pelvis shows RLL lung mass, left hepatic lobe cyst, and a nonspecific area of increased attenuation within the head of the pancreas. CT of the L-spine showed degenerative changes with disc bulging at multiple levels. Continue Rocephin 2 grams IV daily. The patient does have documented allergy to PCN, but it was a nonspecific itching rash and was a very long time ago. She appears to be tolerating Rocephin without a problem. Repeat cultures from [place] on March are no growth to date. Patient clinically doing well. I think we can switch her to oral antibiotics. Consider switching to Omnicef 300 mg twice a day. Please treat through April 07. Patient needs to follow-up with pulmonary and surgery as an outpatient regarding her nephrolithiasis and cavitary lung lesion (2) Cavitating mass in right lower lung lobe Current Visit: Yes Status: Acute Etiology unclear: neoplasm vs. infections vs. other. Pulmonology consulted and following. Planning for transthoracic biopsy per IR--> IR declined procedure and recommended transbronchial biopsy. Please send specimen for culture (aerobic, anaerobic, AFB, and fungal). Continue antibiotics as above. (3) Constipation Current Visit: Yes Status: Acute Patient reports small BM yesterday. Bowel regimen per the primary team. Qualifiers: Constipation type: unspecified constipation type Qualified Code(s): K59.00 - Constipation, unspecified (4) Diabetes type 2, controlled Current Visit: Yes Status: Acute Hgb A1C 7.2%. Recommend aggressive glucose monitoring and control to promote wound healing and prevent re-infection. Management per the primary team. 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 Management per the primary team. (6) COPD (chronic obstructive pulmonary disease) Current Visit: Yes Status: Acute Qualifiers: COPD type: unspecified COPD Qualified Code(s): J44.9 - Chronic obstructive pulmonary disease, unspecified (7) Elevated LFTs Current Visit: Yes Status: Acute Etiology unclear. Gallbladder UTS showed gallstones, but no cholecystitis. Resolved. Continue to trend. (8) Gallstones Current Visit: Yes Status: Acute Noted on previous gallbladder UTS. - Subjective Interval history: Patient seen and examined. She is alone today. No family at bedside. States that she feels great. Denies any headache no chest pain no shortness of breath. No abdominal pain. No nausea no vomiting no urinary symptoms. Patient eager to go home. Family is at bedside. I think she is being discharged today Infect Dis PN-Objective Data - Labs CBC & Chem 7: 03/31/18 05:09 03/31/18 05:09 Labs: Laboratory Results - last 24 hr 03/30/18 03/30/18 03/30/18 08:10 11:57 20:29 WBC RBC Hgb Hct MCV MCH MCHC RDW Plt Count MPV Immature Gran % Seg Neutrophils % Lymphocytes % Monocytes % Eosinophils % Basophils % Neutrophils # Lymphocytes # Monocytes # Eosinophils # Basophils # Sodium Potassium Chloride Carbon Dioxide BUN Creatinine Est GFR ( Amer) Est GFR (Non-Af Amer) BUN/Creatinine Ratio Glucose POC Glucose 129 H 138 H 175 H Calculated Osmolality Calcium Digoxin 03/31/18 03/31/18 03/31/18 05:09 05:09 07:43 WBC 6.9 RBC 3.97 Hgb 10.8 L Hct 35.0 L MCV 88.2 MCH 27.2 L MCHC 30.9 L RDW 13.7 Plt Count 259 MPV 9.4 Immature Gran % 0.6 Seg Neutrophils % 73.7 Lymphocytes % 16.0 Monocytes % 7.5 Eosinophils % 1.9 Basophils % 0.3 Neutrophils # 5.1 Lymphocytes # 1.1 Monocytes # 0.5 Eosinophils # 0.1 Basophils # 0.0 Sodium 143 Potassium 3.4 L Chloride 106 Carbon Dioxide 30 H BUN 12 Creatinine 0.62 Est GFR ( Amer) > 60 Est GFR (Non-Af Amer) > 60 BUN/Creatinine Ratio 19 Glucose 155 H POC Glucose 144 H Calculated Osmolality 299 Calcium 8.4 L Digoxin 0.7 L 03/31/18 16:39 WBC RBC Hgb Hct MCV MCH MCHC RDW Plt Count MPV Immature Gran % Seg Neutrophils % Lymphocytes % Monocytes % Eosinophils % Basophils % Neutrophils # Lymphocytes # Monocytes # Eosinophils # Basophils # Sodium Potassium Chloride Carbon Dioxide BUN Creatinine Est GFR ( Amer) Est GFR (Non-Af Amer) BUN/Creatinine Ratio Glucose POC Glucose 147 H Calculated Osmolality Calcium Digoxin Cultures: Cultures 03/28/18 16:30 Blood Culture - Preliminary Peripheral Venipuncture Culture is incubating and being continuously monitored for growth. Final report to follow. 03/28/18 16:30 Blood Culture - Preliminary Peripheral Venipuncture Culture is incubating and being continuously monitored for growth. Final report to follow. 03/28/18 16:30 Blood Culture - Preliminary Peripheral Venipuncture Culture is incubating and being continuously monitored for growth. Final report to follow. 03/28/18 04:42 Blood Culture - Preliminary Peripheral Venipuncture Culture is incubating and being continuously monitored for growth. Final report to follow. Serology 03/30/18 03/30/18 Range/Units Unknown 11:57 Urine Color Yellow (Yellow) Urine Clarity Slightly Hazy (Clear) Urine pH 6.5 (5.0-8.0) pH Units Ur Specific [place] 1.022 (1.010-1.025) Urine Protein Trace (Neg-Trace) mg/dL Urine Glucose (UA) Normal (Normal) mg/dL Urine Ketones Trace H (Negative) mg/dL Urine Blood Moderate H (Negative) Urine Nitrite Negative (Negative) Urine Bilirubin Negative (Negative) Urine Urobilinogen Normal (Normal) mg/dL Ur Leukocyte Esterase Negative (Negative) Urine Microscopic RBC 50-100 H (0-3) per hpf Urine Microscopic WBC 3-5 H (0-3) per hpf Ur Squamous Epith Cells Many H (None-Few) per lpf Urine Bacteria None Seen (None-Few) per hpf Hyaline Casts Test Not Performed Urine Mucus Many H (Few) Urine Yeast Test Not Performed Ur Culture Indicated? NO (NO) Exam - Constitutional Vitals: Temp Pulse Resp BP Pulse Ox 99.3 F 79 22 125/67 94 03/31/18 15:47 03/31/18 15:47 03/31/18 15:47 03/31/18 15:47 03/31/18 15:47 General appearance: no acute distress, no febrile - Eye Eye exam: Present: EOMI, PERRL - Respiratory Respiratory exam: Present: CTAB. Absent: wheezes - Cardiovascular Cardiovascular exam: Present: RRR, +S1, +S2 - GI/Abdominal GI/Abdominal exam: Present: soft. Absent: tenderness - Extremities Exam Extremities exam: Present: normal inspection. Absent: pedal edema - VTE Documentation of Mechanical Device: Intermittent pneumatic compression device Consult Discharge Plan - Plan Instructions: Chronic Obstructive Pulmonary Disease (DC), Pneumonia (DC) Referrals: Kelly Montes De Oca CNP [Primary Care Provider] - (in 1-2 weeks) Mayur Webber MD [Partnered Physician] - (in 1 week for follow up and possible navigational bronchoscopy Office will call with appointment to Trang Anderson @ [phone]) Prescriptions: Cefdinir [Omnicef] 300 mg PO BID #15 capsule Diltiazem CD (24hr) [Cardizem CD] 180 mg PO 0700 #30 cap.er.24h
--- NOTE | 2018-04-02 20:38 | Electrocardiograph Report ---
[place] [id number] Test Date: 2018-03-29 Pat Name: Anna Douglas Department: 115 Room: 3A Gender: F Piccoloist: : 1935 Requested By: Trang Christie Order Number: [id number] Reading MD: Aly Vazquez Measurements Intervals [place] Rate: 154 P: IA: 0 QRS: -28 QRSD: 80 T: 1 QT: 282 QTc: 369 Interpretive Statements ATRIAL FIBRILLATION WITH RAPID VENTRICULAR RESPONSE POSSIBLE ANTERIOR MYOCARDIAL INFARCTION, PROBABLY OLD Electronically Signed On 04-02-2018 20:37:18 EDT by Aly Vazquez
== END 2018-03-31 18:50 | DRG 190 ==
LOC: 3ANU
PROVIDERS: ADMIT Internal Medicine; ATTEND Internal Medicine